=== PATIENT | male | born 1935 | race Two or more races ===

== ENCOUNTER 2017-11-03 06:57 | Emergency (ER) | payer MEDICARE, OTHER ==
[2017-11-03 07:11] VITALS: BMI 15.5
--- NOTE | 2017-11-03 07:46 | PDOC ---
History of Present Illness - General Chief Complaint: Injury Stated Complaint: HEMATURIA Time Seen by Provider: 11/03/17 07:44 - History of Present Illness Initial Comments: 11/03/17 09:16 Mr. Delatorre is an 82 yo male w/ pmh of GERD and undifferentiated schizophrenia who presents by ambulance after being found down at care home ([facility]). Per report from nursing staff he is at times confused and normally walks around with a walker. He is currently complaining of pain in his hips and has a small abbrasion on his right elbow he says also hurts. The patient denies chest pain, shortness of breath, headache and dizziness. Denies fever, chills, nausea, vomit, diarrhea and constipation. Denies dysuria, frequency, urgency and hematuria. Allergies: NKDA Past History - Past Medical History Allergies/Adverse Reactions: Allergies Allergy/AdvReac Type Severity Reaction Status Date / Time No Known Allergies Allergy Verified 11/03/17 07:11 Home Medications: Ambulatory Orders Acetaminophen [Tylenol] 650 mg PO PRN 11/03/17 Docusate Sodium 100 mg PO PRN 11/03/17 Multivitamins [Tab-A-Vit -] 1 tab PO DAILY 11/03/17 Quetiapine Fumarate [Seroquel -] 25 mg PO BID 11/03/17 Ranitidine HCl [Zantac] 150 mg PO BID 11/03/17 Vit A/Vitamin D3/E/Aloe V/Zinc [Periguard Ointment] 1 applic TP DAILY 11/03/17 - Suicide/Smoking/Psychosocial Hx Smoking History: Unknown if ever smoked Have you smoked in the past 12 months: No Information on smoking cessation initiated: No Hx Alcohol Use: No Drug/Substance Use Hx: No Review of Systems - Review of Systems Comments:: 11/03/17 07:45 GENERAL/CONSTITUTIONAL: No fever or chills. No weakness. HEAD, EYES, EARS, NOSE AND THROAT: No change in vision. No ear pain or discharge. No sore throat. CARDIOVASCULAR: No chest pain or shortness of breath RESPIRATORY: No cough, wheezing, or hemoptysis. GASTROINTESTINAL: No nausea, vomiting, diarrhea or constipation. GENITOURINARY: No dysuria, frequency, or change in urination. MUSCULOSKELETAL: +Patient reports pain to each hip. SKIN: No rash NEUROLOGIC: No headache, vertigo, loss of consciousness, or change in strength/ sensation. ENDOCRINE: No increased thirst. No abnormal weight change HEMATOLOGIC/LYMPHATIC: No anemia, easy bleeding, or history of blood clots. ALLERGIC/IMMUNOLOGIC: No hives or skin allergy. *Physical Exam - Vital Signs Last Vital Signs Temp Pulse Resp BP Pulse Ox 97.1 F L 85 18 91/70 100 11/03/17 07:09 11/03/17 07:09 11/03/17 07:09 11/03/17 07:09 11/03/17 07:09 - Physical Exam Comments: 11/03/17 07:46 GENERAL: Awake, alert, and oriented to person, in no acute distress HEAD: No signs of trauma, normocephalic, atraumatic EYES: PERRLA, EOMI, sclera anicteric, conjunctiva clear ENT: Auricles normal inspection, hearing grossly normal, nares patent, oropharynx clear without exudates. Moist mucosa NECK: Normal ROM, supple, no lymphadenopathy, JVD, or masses LUNGS: No distress, speaks full sentences, clear to auscultation bilaterally HEART: Regular rate and rhythm, normal S1 and S2, no murmurs, rubs or gallops, peripheral pulses normal and equal bilaterally. ABDOMEN: Soft, nontender, normoactive bowel sounds. No guarding, no rebound. No masses EXTREMITIES: +Small quarter sized abbrasion to lateral right elbow. Normal range of motion, no edema. No clubbing or cyanosis. NEUROLOGICAL: Cranial nerves II through XII grossly intact. Normal speech, normal gait, no focal sensorimotor deficits SKIN: Warm, Dry, normal turgor, no rashes or lesions noted. Medical Decision Making - Medical Decision Making 11/03/17 10:31 Mr. Delatorre is an 82 yo male found down w/ pmh as described. Head/Neck CT sent for evaluation as well as bilateral hip XR as patient complaining of pain on either side. Hip XR negative for acute pathology. Patient noted to have UTI as below. Keflex started for care. 11/03/17 11:12 Head/Neck CT negative for acute pathology. Will contact care home and discuss findings and discharge to their care w/ Keflex Rx for UTI treatment. 11/03/17 11:42 Called care home and discussed care with nurse plant protection supervisor. They will continue Keflex 500 bid for 1 week. Informed that we started this AM. Nursing expressed understanding and agreement and will comply. *DC/Admit/Observation/Transfer Diagnosis at time of Disposition: UTI (urinary tract infection) Qualifiers: Urinary tract infection type: site unspecified Hematuria presence: with hematuria Qualified Code(s): N39.0 - Urinary tract infection, site not specified - Discharge Dispostion Disposition: HOME - Referrals Referrals: Stacy Fuentes MD [Primary Care Provider] - - Patient Instructions Printed Discharge Instructions: DI for Urinary Tract Infection (UTI) Additional Instructions: Please continue keflex 500mg BID for 1 week. We have given first dose of the day in the ED already. Return if any fever, chills, pain, or other concerning symptoms. - Post Discharge Activity
--- NOTE | 2017-11-03 07:50 | PDOC ---
Attending Attestation - HPI HPI: 11/03/17 08:47 The patient is a 82 year old male, with a significant past medical history of schizophrenia, frequent falls,, and GERD, who presents to the emergency department from Shelter, s/p multiple unwitnessed falls. As per patient he does not know why he is here. However per EMS, patient fell multiple times at the [place]. Per nurse at [facility], patient was found on the floor, but he was able to get up on his own. Nurse reports patient has a suprapubic catheter in place, and blood was noted. Unknown how long patient was down for, whether he hit head , or had a syncopal event. Per records patient has generalized weakness at baseline, and typically ambulates with a walker. Patient is not on any blood thinners. Patient's baseline mental status is unknown. Patients history is limited due to clinical condition. Allergies: NKDA - Medical Decision Making 11/03/17 08:47 Documentation prepared by Antonio Thomas, acting as medical technologist generalist for Kathleen Motta MD. <Antonio Thomas - Last Filed: 11/03/17 09:02> - Resident Resident Name: Leonides Cleveland - ED Attending Attestation I have performed the following: I have examined & evaluated the patient, The case was reviewed & discussed with the resident, I agree w/resident's findings & plan, Exceptions are as noted - Physicial Exam PE: GENERAL: Awake, alert, and oriented to person, in no acute distress. Appears cachectic, chronically ill. HEAD: No signs of trauma EYES: PERRLA, EOMI, sclera anicteric, conjunctiva clear ENT: Auricles normal inspection, hearing grossly normal, nares patent, oropharynx clear without exudates. Dry mucosa NECK: Normal ROM, supple, no lymphadenopathy, JVD, or masses LUNGS: Breath sounds equal, clear to auscultation bilaterally. No wheezes, and no crackles HEART: Regular rate and rhythm, normal S1 and S2, no murmurs, rubs or gallops ABDOMEN: Soft, nontender, normoactive bowel sounds. No guarding, no rebound. No masses. +Suprapubic catheter, yellow urine in bag. EXTREMITIES: No bony tenderness to extremities. Normal range of motion, no edema. No clubbing or cyanosis. No cords, erythema, or tenderness NEUROLOGICAL: Cranial nerves II through XII grossly intact. Normal speech. Motor and sensation intact. SKIN: Warm, Dry, normal turgor, no rashes or lesions noted. - Medical Decision Making Pt presents s/p reported fall, unable to give reliable history. Will confirm baseline mental status with NH, will also obtain imaging of the hips B/L as that is where he initially reported pain. <Kathleen Motta - Last Filed: 11/03/17 09:43>
[2017-11-03 08:35] LABS: URINE APPEARANCE CLOUDY; URINE BILIRUBIN NEGATIVE (NEGATIVE); URINE BLOOD 3+ (NEGATIVE); URINE COLOR YELLOW; URINE GLUCOSE (UA) NEGATIVE (NEGATIVE); URINE KETONE NEGATIVE (NEGATIVE); URINE NITRITE POSITIVE (NEGATIVE); URINE UROBILINOGEN NEGATIVE mg/dL (0.2-1.0)
[2017-11-03 08:46] LABS: URINE LEUK ESTERASE 3+ (NEGATIVE); URINE PROTEIN 2+ (NEGATIVE)
[2017-11-03 08:55] LABS: URINE BACTERIA MANY /hpf (NONE SEEN)
[2017-11-03] MEDS ORDERED: CEPHALEXIN MONOHYDRATE 500 MG CAPSULE (UD) PO ONE (11:02)
[2017-11-03] MEDS ORDERED: CEPHALEXIN MONOHYDRATE 250 MG CAPSULE (FP) ONE (11:32)
[2017-11-03 14:02] VITALS: BP 118/72; PULSE 72; TEMP 97.2
--- NOTE | 2017-11-06 08:07 | PDOC ---
Patient Follow-up (Call Back) - Post ED Follow - Up Disposition at time of original discharge: [facility] Reason for Call Back: Abnwl. Microbiology (Pseudomonas on ucx, only sensitive to IV abx Pt on keflex which is not listed on sensitivity report Pt resides at [facility], called and informed nurse Patience and gave her full ucx report and sensitivity. States she will inform MD at facility)
== END 2017-11-03 14:00 ==
LOC: JER 06:57
DX: N39.0 Urinary tract infection, site not specified (principal); R31.9 Hematuria, unspecified; Z93.59 Other cystostomy status; W19.XXXA Unspecified fall, initial encounter; Y93.89 Activity, other specified; Y92.122 Bedroom in nursing home as the place of occurrence of the external cause; R26.89 Other abnormalities of gait and mobility; Z99.89 Dependence on other enabling machines and devices
CPT/HCPCS: 70450-TC; 72125-TC; 73523-TC-FY; 81003; 81015; 87086; 87186; 99283-25

== ENCOUNTER 2017-11-20 13:46 | Inpatient (IN) | payer MEDICARE, OTHER ==
[2017-11-20 14:12] VITALS: BMI 16.8
--- NOTE | 2017-11-20 14:20 | PDOC ---
History of Present Illness - General History Source: Patient - History of Present Illness Initial Comments: 11/20/17 15:59 HPI obtained from [place] records and conversation w/Marii Encinas (nurse @ [facility], ) as well as conversation with patient's PMD, Dr. Stacy Fuentes 82 y.o. male with a PMH of GERD, MDD and undifferentiated schizophrenia presents from [facility] ([facility]). Patient was noted to be "lethargic" on (). As patient's SpO2 in 80's today, CXR obtained showed possible lung mass. Patient sent to our ED at request of PMD. Patient is full code as per documentation @ [facility]. <Radha Eagle - Last Filed: 11/20/17 17:55> <Bartolome Marks - Last Filed: 11/20/17 20:00> - General Chief Complaint: Shortness of Breath Stated Complaint: SOB Time Seen by Provider: 11/20/17 14:19 Past History - Past Medical History COPD: No GI Disorders: Yes (gerd) Disorders: Yes (cystitis, berumen cath) Psychiatric Problems: Yes (schizophrenia,agitation) - Immunization History Immunization Up to Date: Yes - Suicide/Smoking/Psychosocial Hx Smoking History: Unknown if ever smoked Have you smoked in the past 12 months: No Information on smoking cessation initiated: No Hx Alcohol Use: No Drug/Substance Use Hx: No Substance Use Type: None <Radha Eagle - Last Filed: 11/20/17 17:55> <Bartolome Marks - Last Filed: 11/20/17 20:00> - Past Medical History Allergies/Adverse Reactions: Allergies Allergy/AdvReac Type Severity Reaction Status Date / Time No Known Allergies Allergy Verified 11/20/17 14:06 Home Medications: Ambulatory Orders Acetaminophen [Tylenol] 650 mg PO PRN 11/03/17 Docusate Sodium 100 mg PO PRN 11/03/17 Multivitamins [Tab-A-Vit -] 1 tab PO DAILY 11/03/17 Quetiapine Fumarate [Seroquel -] 75 mg PO BID 11/03/17 Ranitidine HCl [Zantac] 150 mg PO BID 11/03/17 Bacitracin - [Bacitracin Topical Ointment -] 1 applic TP BID 11/20/17 Mirtazapine [Remeron -] 7.5 mg PO HS 11/20/17 Review of Systems - Review of Systems Able to Perform ROS?: No <Radha Eagle - Last Filed: 11/20/17 17:55> *Physical Exam - Vital Signs Last Vital Signs Temp Pulse Resp BP Pulse Ox 112 H 20 93/73 11/20/17 14:07 11/20/17 14:07 11/20/17 14:07 - Physical Exam Comments: 11/20/17 17:48 GENERAL: initially only responsive to sternal rub --> increasingly alert during evaluation, cachetic HEAD: No signs of trauma EYES: PERRLA, EOMI, sclera anicteric, conjunctiva clear NECK: Normal ROM, supple, no lymphadenopathy, JVD, or masses LUNGS: Breath sounds equal, clear to auscultation bilaterally. No wheezes, and no crackles HEART: Regular rate and rhythm, normal S1 and S2, no murmurs, rubs or gallops ABDOMEN: Soft, nontender, normoactive bowel sounds. No guarding, no rebound. No masses EXTREMITIES: Normal range of motion, no edema. No clubbing or cyanosis. Cool, normal cappilarry refill NEUROLOGICAL: slurred speech, cranial nerves grossly intact SKIN: Cool, Stage 2 decubitus ulcer. <Radha Eagle - Last Filed: 11/20/17 17:55> - Vital Signs Last Vital Signs Temp Pulse Resp BP Pulse Ox 99.1 F 88 16 98/87 97 11/20/17 15:07 11/20/17 16:49 11/20/17 16:49 11/20/17 16:49 11/20/17 16:49 <Bartolome Marks - Last Filed: 11/20/17 20:00> ED Treatment Course - LABORATORY CBC & Chemistry Diagram: 11/20/17 15:07 11/20/17 15:07 <Radha Eagle - Last Filed: 11/20/17 17:55> - LABORATORY CBC & Chemistry Diagram: 11/20/17 15:07 11/20/17 15:07 - ADDITIONAL ORDERS Additional order review: Laboratory Results 11/20/17 11/20/17 11/20/17 15:07 15:07 15:07 PT with INR INR PTT (Actin FS) Anticoagulation Therapy No Result Required. Puncture Site Left brachial ABG pH 7.52 H ABG pCO2 at Pt Temp 27.6 L ABG pO2 at Pt Temp 191.0 H* ABG HCO3 22.5 ABG O2 Sat (Measured) 99.6 H* ABG O2 Content 14.3 L ABG Base Excess 0.7 Michael Test Positive Carboxyhemoglobin 1.6 Methemoglobin 1.0 O2 Delivery Device No Result Required. Oxygen Flow Rate Yes Vent Mode No Result Required. Vent Rate No Result Required. Mechanical Rate No Result Required. Pressure Support Vent No Result Required. Sodium Potassium Chloride Carbon Dioxide Anion Gap BUN Creatinine Creat Clearance w eGFR Random Glucose Lactic Acid 2.7 H* Calcium Total Bilirubin AST ALT Alkaline Phosphatase Creatine Kinase Troponin I Total Protein Albumin Urine Color Urine Appearance Urine pH Ur Specific [place] Urine Protein Urine Glucose (UA) Urine Ketones Urine Blood Urine Nitrite Urine Bilirubin Urine Urobilinogen Ur Leukocyte Esterase Urine WBC (Auto) Urine RBC (Auto) Urine Bacteria Hyaline Casts Urine Mucus Blood Type O POSITIVE Antibody Screen Negative 11/20/17 11/20/17 11/20/17 15:07 15:07 15:00 PT with INR 15.10 H INR 1.34 H PTT (Actin FS) 24.0 L Anticoagulation Therapy Puncture Site ABG pH ABG pCO2 at Pt Temp ABG pO2 at Pt Temp ABG HCO3 ABG O2 Sat (Measured) ABG O2 Content ABG Base Excess Michael Test Carboxyhemoglobin Methemoglobin O2 Delivery Device Oxygen Flow Rate Vent Mode Vent Rate Mechanical Rate Pressure Support Vent Sodium 139 Potassium 4.7 Chloride 107 Carbon Dioxide 21 Anion Gap 11 BUN 73 H Creatinine 1.7 H Creat Clearance w eGFR 38.78 Random Glucose 214 H Lactic Acid Calcium 8.3 L Total Bilirubin 0.4 AST 38 H ALT 31 Alkaline Phosphatase 152 H Creatine Kinase 51 Troponin I 0.02 Total Protein 6.6 Albumin 2.3 L Urine Color Dkyellow Urine Appearance Turbid Urine pH 5.0 Ur Specific [place] 1.013 Urine Protein 1+ H Urine Glucose (UA) Negative Urine Ketones Negative Urine Blood 1+ H Urine Nitrite Negative Urine Bilirubin Negative Urine Urobilinogen Negative Ur Leukocyte Esterase 3+ H Urine WBC (Auto) 404 Urine RBC (Auto) 22 Urine Bacteria Many Hyaline Casts 6 Urine Mucus Rare Blood Type Antibody Screen 11/20/17 15:07 RBC 3.38 L MCV 87.8 MCHC 33.8 RDW 16.1 H MPV 7.1 L Neutrophils % 87.2 H Lymphocytes % 4.8 L Monocytes % 7.8 Eosinophils % 0.0 Basophils % 0.2 - Medications Given in the ED: ED Medications Discontinued Medications Generic Name Dose Route Start Last Admin Trade Name Archana PRN Reason Stop Dose Admin Sodium Chloride 1,000 ml 11/20/17 15:55 11/20/17 16:09 Normal Saline - IV 11/20/17 15:56 1,000 ml ONCE ONE Administration Sodium Chloride 1,000 ml 11/20/17 15:58 11/20/17 15:20 Normal Saline - IV 11/20/17 15:59 1,000 ml ONCE ONE Administration <Bartolome Marks - Last Filed: 11/20/17 20:00> Medical Decision Making - Medical Decision Making 11/20/17 15:59 82 y.o. male presents from [place] with hypoxia and "lethargy." Patient hypotensive (SBP 90's), tachycardic (100's) @ presentation as well as alert to sternal rub, ED Adult Sepsis protocol initiated. Unable to obtain SpO2 - likely 2/2 to poor perfusion 2/2 to cool extremities, will place patient on BiPap pending ABG. 11/20/17 16:19 BUN 73, Cr. 1.7 -- large ratio suggestive of uremia leading to AMS, however patient more alert, semi-intelligible conversaitonal Sudanese Lactic Acid --> additional 1 L IV NS; will repeat Lactic Acid following fluid administration. ABG shows no pO2 99% - will d/c BiPap PMD paged for admission 11/20/17 16:[address] chest to r/o lung mass. Patient admitted to inpatient medicine service. Will continue to monitor while in ED. <Radha Eagle - Last Filed: 11/20/17 17:55> *DC/Admit/Observation/Transfer - Discharge Dispostion Admit: Yes <Radha Eagle - Last Filed: 11/20/17 17:55> <Bartolome Marks - Last Filed: 11/20/17 20:00> Diagnosis at time of Disposition: Uremia, Lung mass, Elevated lactic acid level, Dehydration Anemia Qualifiers: Anemia type: other cause Other causes of anemia: other cause, not classified Qualified Code(s): D64.89 - Other specified anemias - Discharge Dispostion Condition at time of disposition: Guarded
[2017-11-20 15:16] LABS: ARTERIAL BLD GAS O2 SATURATION 99.6 % (90-98.9); ARTERIAL BLOOD GAS BASE EXCESS 0.7 meq/l (-2-2); ARTERIAL BLOOD GAS PCO2 27.6 mmHg (35-45); ARTERIAL BLOOD GAS pH 7.52 (7.35-7.45)
[2017-11-20 15:18] LABS: ALLENS TEST POSITIVE; CARBOXYHEMOGLOBIN 1.6 gm% (0.5-2.0)
--- NOTE | 2017-11-20 15:18 | PDOC ---
Attending Attestation - Resident Resident Name: Radha Eagle - ED Attending Attestation I have performed the following: I have examined & evaluated the patient, The case was reviewed & discussed with the resident, I agree w/resident's findings & plan, Exceptions are as noted - HPI HPI: 11/20/17 15:16 82y M hx of gerd, urinary retention, schizophrenia, sent from [facility] for evaluation of sob. pt is uanble to give a history. hehas cool extremities, bp is low normal, unable to obtain good sat i suspect due to perfusion. on exam pt is cacectic appearing dry mucus membranes pulm: clear lungs wo rales/wheezing cardiac: rrr, no mrg abd: soft nontender ext: no edema, cachectic extremities skin: stage 2 decubitus ulcer without signs of infection rectal: brown stool : berumen in place 11/20/17 16:52 on reexacm pt is more awake denies any cp, sob, fever/chills, cough, back pain, abd pain, diarrhea, reactal bleeding pts labs reviewed noted for anemia to 10.0 BUN elevated to 70s cr at 1.[address] frausto - statk[facility] pt was noted alittle hypoxic, had a cxr yesterday that showed a possible lung mas so was sent to the ED for evaluation will obtain CT chest agree with admission to med surg - Physicial Exam PE: 11/20/17 19:54 see above - Medical Decision Making 11/20/17 19:55 see above Heart Score/ECG Review - ECG Impressions Comment:: 11/20/17 15:20 Twelve-lead EKG was performed and reviewed by me. There is normal sinus rhythm with a rate of 103 rate of [address] changes suggestive of acute ischemia
[2017-11-20 15:27] LABS: BASO % 0.2 % (0-2.0); HEMATOCRIT 29.6 % (35.4-49); LYMPH % 4.8 % (8-40); MCH 29.6 pg (25.7-33.7); MCHC 33.8 g/dl (32.0-35.9); MEAN CELL VOLUME 87.8 fl (80-96); MEAN PLT VOLUME 7.1 fl (7.5-11.1); MONO % 7.8 % (3.8-10.2); NEUT % 87.2 % (42.8-82.8); PLATELET COUNT 372 K/MM3 (134-434); RBC 3.38 M/mm3 (4.00-5.60); RDW 16.1 % (11.9-15.9); WHITE BLOOD COUNT 10.2 K/mm3 (4.0-10.0)
[2017-11-20 15:34] LABS: ALBUMIN 2.3 g/dl (3.4-5.0); ANION GAP 11 (8-16); BILIRUBIN,TOTAL 0.4 mg/dL (0.2-1.0); BLOOD UREA NITROGEN 73 mg/dL (7-18); CALCIUM 8.3 mg/dL (8.5-10.1); CHLORIDE 107 mmol/L (98-107); CO2 21 mmol/L (21-32); CREATININE 1.7 mg/dL (0.7-1.3); GLUCOSE,RANDOM 214 mg/dL (74-106); POTASSIUM 4.7 mmol/L (3.5-5.1); SGOT/AST 38 U/L (15-37); SGPT/ALT 31 U/L (12-78); SODIUM 139 mmol/L (136-145); TOT PROT 6.6 g/dl (6.4-8.2)
[2017-11-20 15:37] LABS: ALK PHOS 152 U/L (45-117)
[2017-11-20 15:40] LABS: INR 1.34 (0.82-1.09); PROTHROMBIN TIME (PATIENT) 15.1 SEC (9.98-11.88)
[2017-11-20] MEDS ORDERED: SODIUM CHLORIDE 0.9% 500 ML INFUS.BAG IV ONE ×2 (15:55→15:58)
[2017-11-20 16:54] LABS: URINE APPEARANCE TURBID; URINE BILIRUBIN NEGATIVE (NEGATIVE); URINE BLOOD 1+ (NEGATIVE); URINE COLOR DKYELLOW; URINE GLUCOSE (UA) NEGATIVE (NEGATIVE); URINE KETONE NEGATIVE (NEGATIVE); URINE NITRITE NEGATIVE (NEGATIVE); URINE UROBILINOGEN NEGATIVE mg/dL (0.2-1.0)
--- NOTE | 2017-11-20 17:06 | HP ---
Admitting History and Physical - Primary Care Physician PCP: Stacy Fuentes - Admission Chief Complaint: shortness of breath and lethargic History of Present Illness: patient sent to the emergency room by me from [facility]. Patient was seen earlier Over there. Patient's saturation was 81% on 3 L. Recent chest x-ray showed--left lower mass./ possible pneumonia I reviewed the chart. Patient recently admitted to [facility]--- From [facility]. Apparently he had chest x-ray done in August--- showed similar mass. No discharge summary came. Apparently in the chart--mentioned to CT chest--- but no CT chest one/ or report available. Also mentioned patient has guardian but no family. also mentioned--- conservative treatment as per pulmonary and hematology--- but no consults seen Patient is not DNR. I advised since patient is dyspneic-sent to emergency room for further evaluation and management. In the emergency room---the chest x-ray/ ct chest confirmed a mass . patient is very cachectic/week. Poor historian. History Source: Medical Record Limitations to Obtaining History: Clinical Condition - Past Medical History Cardiovascular: Yes: CAD Renal/: Yes: Other (history of suprapubic catheter----changed to Franklin--- indwelling--) Infectious Disease: Yes: Other (UTI) Psych: Yes: Schizophrenia - Smoking History Smoking history: Unknown if ever smoked Have you smoked in the past 12 months: No - Alcohol/Substance Use Hx Alcohol Use: No - Social History Usual Living Arrangement: Yes: Jail History of Recent Travel: No Home Medications - Allergies Allergies/Adverse Reactions: Allergies Allergy/AdvReac Type Severity Reaction Status Date / Time No Known Allergies Allergy Verified 11/20/17 14:06 - Home Medications Home Medications: Ambulatory Orders Acetaminophen [Tylenol] 650 mg PO PRN 11/03/17 Docusate Sodium 100 mg PO PRN 11/03/17 Multivitamins [Tab-A-Vit -] 1 tab PO DAILY 11/03/17 Quetiapine Fumarate [Seroquel -] 75 mg PO BID 11/03/17 Ranitidine HCl [Zantac] 150 mg PO BID 11/03/17 Bacitracin - [Bacitracin Topical Ointment -] 1 applic TP BID 11/20/17 Mirtazapine [Remeron -] 7.5 mg PO HS 11/20/17 Review of Systems Unable to obtain ROS, reason: see [place] Physical Examination Vital Signs: Vital Signs Temperature 99.1 F 11/20/17 15:07 Pulse Rate 88 11/20/17 16:49 Respiratory Rate 16 11/20/17 16:49 Blood Pressure 98/87 11/20/17 16:49 O2 Sat by Pulse Oximetry (%) 97 11/20/17 16:49 Constitutional: Yes: Cachectic, Other Eyes: Yes: Conjunctiva Clear Neck: Yes: Supple Cardiovascular: Yes: Regular Rate and Rhythm Respiratory: Yes: Diminished Gastrointestinal: Yes: Soft Renal/: Yes: Franklin Present Edema: No Labs: CBC, BMP 11/20/17 15:07 11/20/17 15:07 Imaging - Results Chest X-ray: Report Reviewed Cat Scan: Report Reviewed Problem List - Problems (1) Anemia Code(s): D64.9 - ANEMIA, UNSPECIFIED Qualifiers: Anemia type: other cause Other causes of anemia: other cause, not classified Qualified Code(s): D64.89 - Other specified anemias (2) Dehydration Code(s): E86.0 - DEHYDRATION (3) Elevated lactic acid level Code(s): R79.89 - OTHER SPECIFIED ABNORMAL FINDINGS OF BLOOD CHEMISTRY (4) Lung mass Code(s): R91.8 - OTHER NONSPECIFIC ABNORMAL FINDING OF LUNG FIELD Assessment/Plan admit to MedSurg. Fluids. Patient's healthcare proxy/ to be contacted/regarding patient's wishes Oxygen Pulmonary consult. Overall condition --very guarded. Will follow. Discussed with nursing staff also--as well as with the emergency room physician.
[2017-11-20] MEDS ORDERED: ACETAMINOPHEN 325 MG TABLET (FP) PO PRN ×2 (17:15→18:11)
[2017-11-20] MEDS ORDERED: DOCUSATE SODIUM 100 MG CAPSULE (FP) PO PRN (18:08)
[2017-11-20 18:14] LABS: URINE LEUK ESTERASE 3+ (NEGATIVE); URINE PROTEIN 1+ (NEGATIVE)
[2017-11-20 18:39] LABS: URINE BACTERIA MANY /hpf (NONE SEEN); URINE HYALINE CAST 6 /lpf; URINE MUCUS RARE
[2017-11-20] MEDS: D5-1/2NS+20 MEQ KCL - 20 MEQ/1,000 ML INFUS.BAG IV SCH (20:26)
[2017-11-20] MEDS ORDERED: INSULIN (NOVOLOG) ASPART 100 UNITS/ML 10ML VIAL ONE (21:10)
[2017-11-20] MEDS: HEPARIN NA (PORCINE) 5,000 UNITS/ML 1ML VIAL SQ SCH (22:34)
[2017-11-20] MEDS: BACITRACIN 15 GM TUBE TOPICAL OINTMENT TP SCH (22:35)
[2017-11-20] MEDS: QUEtiapine FUMARATE 25 MG TABLET (FP) PO SCH (22:36)
[2017-11-20] MEDS: RANITIDINE HCL 150 MG TABLET (FP) PO SCH (22:36)
[2017-11-20] MEDS: MIRTAZAPINE 15 MG TABLET (FP) PO SCH (22:36)
[2017-11-21] MEDS: D5-1/2NS+20 MEQ KCL - 20 MEQ/1,000 ML INFUS.BAG IV SCH ×3 (05:53→20:08)
[2017-11-21 08:45] LABS: BASO % 0.1 % (0-2.0); EOS % 0.1 % (0-4.5); HEMATOCRIT 28.4 % (35.4-49); HEMOGLOBIN 9.5 GM/dL (11.7-16.9); LYMPH % 6.4 % (8-40); MCH 29.5 pg (25.7-33.7); MCHC 33.4 g/dl (32.0-35.9); MEAN CELL VOLUME 88.5 fl (80-96); MEAN PLT VOLUME 7.1 fl (7.5-11.1); MONO % 7.5 % (3.8-10.2); NEUT % 85.9 % (42.8-82.8); PLATELET COUNT 300 K/MM3 (134-434); RBC 3.21 M/mm3 (4.00-5.60); RDW 16.5 % (11.9-15.9); WHITE BLOOD COUNT 9.5 K/mm3 (4.0-10.0)
[2017-11-21 09:08] LABS: ALBUMIN 2.1 g/dl (3.4-5.0); ANION GAP 8 (8-16); BLOOD UREA NITROGEN 49 mg/dL (7-18); CHLORIDE 113 mmol/L (98-107); CO2 24 mmol/L (21-32); CREATININE 1.1 mg/dL (0.7-1.3); GLUCOSE,RANDOM 121 mg/dL (74-106); POTASSIUM 4.7 mmol/L (3.5-5.1); SGOT/AST 28 U/L (15-37); SGPT/ALT 24 U/L (12-78); SODIUM 145 mmol/L (136-145)
[2017-11-21 09:10] LABS: ALK PHOS 139 U/L (45-117); BILIRUBIN,TOTAL 0.4 mg/dL (0.2-1.0); TOT PROT 5.9 g/dl (6.4-8.2)
[2017-11-21] MEDS: HEPARIN NA (PORCINE) 5,000 UNITS/ML 1ML VIAL SQ SCH ×2 (10:39→22:54)
[2017-11-21] MEDS: RANITIDINE HCL 150 MG TABLET (FP) PO SCH ×2 (10:40→22:56)
[2017-11-21] MEDS: MULTIVITAMINS (DAILY MVI) TABLET (FP) PO SCH (10:40)
[2017-11-21] MEDS: QUEtiapine FUMARATE 25 MG TABLET (FP) PO SCH ×2 (10:41→22:56)
[2017-11-21] MEDS: BACITRACIN 15 GM TUBE TOPICAL OINTMENT TP SCH ×2 (10:45→22:54)
[2017-11-21] MEDS ORDERED: PT OWN MED DRAWER 7, Y5N ONE ×2 (10:48→12:24)
--- NOTE | 2017-11-21 10:59 | PN ---
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, Physician Chief Complaint: PT AGITATED known to me from [place]-- has multiple falls history Has h/o lung mass- being followed by Pulmonary -- no interventions Cachetic - Current Medication List Current Medications: Active Medications Bacitracin (Bacitracin -) 1 applic TP BID [facility] Last Admin: 11/21/17 10:45 Dose: 1 applic Heparin Sodium (Porcine) (Heparin -) 5,000 unit SQ BID [facility] Last Admin: 11/21/17 10:39 Dose: 5,000 unit Potassium Chloride/Dextrose/Sod Cl (D5-1/2ns+20 Meq Kcl -) 20 meq in 1,000 mls @ 100 mls/hr IV ASDIR [facility] Last Admin: 11/21/17 05:53 Dose: 100 mls/hr Mirtazapine (Remeron -) 7.5 mg PO HS [facility] Last Admin: 11/20/17 22:36 Dose: Not Given Multivitamins/Minerals/Vitamin C (Tab-A-Vit -) 1 tab PO DAILY [facility] Last Admin: 11/21/17 10:40 Dose: 1 tab Quetiapine Fumarate (Seroquel -) 75 mg PO BID [facility] Last Admin: 11/21/17 10:41 Dose: 75 mg Ranitidine HCl (Zantac -) 150 mg PO BID [facility] Last Admin: 11/21/17 10:40 Dose: 150 mg - Objective Vital Signs: Vital Signs Temperature 97.9 F 11/21/17 06:00 Pulse Rate 67 11/21/17 09:00 Respiratory Rate 18 11/21/17 09:00 Blood Pressure 118/72 11/21/17 09:00 O2 Sat by Pulse Oximetry (%) 97 11/21/17 07:16 Constitutional: Yes: No Distress, Calm Cardiovascular: Yes: Regular Rate and Rhythm Respiratory: Yes: Diminished, Rales Gastrointestinal: Yes: Normal Bowel Sounds, Soft. No: Tenderness Genitourinary: Yes: Franklin Present Edema: No Labs: CBC, BMP 11/21/17 08:05 11/21/17 08:05 INR, PTT INR 1.34 (0.82-1.09) H 11/20/17 15:07 Problem List - Problems (1) Anemia Code(s): D64.9 - ANEMIA, UNSPECIFIED Qualifiers: Anemia type: other cause Other causes of anemia: other cause, not classified Qualified Code(s): D64.89 - Other specified anemias (2) Dehydration Code(s): E86.0 - DEHYDRATION (3) Elevated lactic acid level Code(s): R79.89 - OTHER SPECIFIED ABNORMAL FINDINGS OF BLOOD CHEMISTRY (4) Lung mass Code(s): R91.8 - OTHER NONSPECIFIC ABNORMAL FINDING OF LUNG FIELD (5) Uremia Code(s): N19 - UNSPECIFIED KIDNEY FAILURE Assessment/Plan PLAN decrease iv fluids xanax prn for agitation pt does not have family in chart supportive care will speak with NH staff
[2017-11-21] MEDS ORDERED: ALPRAZolam 0.25 MG TABLET PO PRN (12:11)
--- NOTE | 2017-11-21 12:20 | CON.PULM ---
Consult Consult Specialty:: PULMONARY Referred by:: Dr. Head Reason for Consultation:: lung mass - History of Present Illness Chief Complaint: lethargy History of Present Illness: 82yo male with h/o schizophrenia, depression, GERD who was transferred from the custodial for lethargy and hypoxia. Pt unable to provide further history at this time. CXR was done which showed a LLL mass confirmed by CT chest. No fevers recorded, bloodwork unremarkable. ABG showing acute respiratory alkalosis. Pt poor historian, cachectic. - History Source History Provided By: Medical Record Limitations to Obtaining History: Clinical Condition - Past Medical History Cardio/Vascular: Yes: CAD Renal/: Yes: Other (history of suprapubic catheter----changed to Franklin--- indwelling--) Infectious Disease: Yes: Other (UTI) Psych: Yes: Depression, Schizophrenia - Alcohol/Substance Use Hx Alcohol Use: No - Smoking History Smoking history: Unknown if ever smoked Have you smoked in the past 12 months: No - Social History History of Recent Travel: No Home Medications - Allergies Allergies/Adverse Reactions: Allergies Allergy/AdvReac Type Severity Reaction Status Date / Time No Known Allergies Allergy Verified 11/20/17 14:06 - Home Medications Home Medications: Ambulatory Orders Acetaminophen [Tylenol] 650 mg PO PRN 11/03/17 Docusate Sodium 100 mg PO PRN 11/03/17 Multivitamins [Tab-A-Vit -] 1 tab PO DAILY 11/03/17 Quetiapine Fumarate [Seroquel -] 75 mg PO BID 11/03/17 Ranitidine HCl [Zantac] 150 mg PO BID 11/03/17 Bacitracin - [Bacitracin Topical Ointment -] 1 applic TP BID 11/20/17 Mirtazapine [Remeron -] 7.5 mg PO HS 11/20/17 Review of Systems Unable to obtain ROS, reason: poor historian Physical Exam Vital Sings: Vital Signs Temperature 97.9 F 11/21/17 06:00 Pulse Rate 67 11/21/17 09:00 Respiratory Rate 18 11/21/17 09:00 Blood Pressure 118/72 11/21/17 09:00 O2 Sat by Pulse Oximetry (%) 98 11/21/17 09:00 Constitutional: Yes: No Distress, Cachectic Eyes: Yes: Conjunctiva Clear, EOM Intact HENT: Yes: Atraumatic, Normocephalic Neck: Yes: Supple, Trachea Midline Cardiovascular: Yes: Regular Rate and Rhythm Respiratory: Yes: Diminished (distant breath sounds) ...Clubbing: No Gastrointestinal: Yes: Normal Bowel Sounds, Soft. No: Tenderness Edema: No Labs: CBC, BMP 11/21/17 08:05 11/21/17 08:05 ABG Results ABG pH 7.52 (7.35-7.45) H 11/20/17 15:07 ABG pCO2 at Pt Temp 27.6 mmHg (35-45) L 11/20/17 15:07 ABG pO2 at Pt Temp 191.0 mmHg (68-100) H* 11/20/17 15:07 ABG HCO3 22.5 meq/L (22-26) 11/20/17 15:07 ABG O2 Sat (Measured) 99.6 % (90-98.9) H* 11/20/17 15:07 ABG O2 Content 14.3 % vol (15-22) L 11/20/17 15:07 ABG Base Excess 0.7 meq/l (-2-2) 11/20/17 15:07 Imaging - Results Cat Scan: Report Reviewed, Image Reviewed (large LLL mass) Assessment/Plan Lung Mass likely malignant Failure to Thrive Schizophrenia Depression - lung mass likely malignant but pt with poor functional status and appears very malnourished, likely would not be a candidate for treatment even if he was diagnosed with a malignancy - would defer invasive diagnostic procedures at this time - oncology evaluation for further input - DVT prophylaxis
--- NOTE | 2017-11-21 14:26 | EKG ---
Test Reason : Blood Pressure : / mmHG Vent. Rate : 103 BPM Atrial Rate : 103 BPM P-R Int : 142 ms QRS Dur : 088 ms QT Int : 324 ms P-R-T Axes : 085 084 082 degrees QTc Int : 424 ms Limited data due to poor baseline ecg SINUS TACHYCARDIA LOW VOLTAGE QRS BORDERLINE ECG NO PREVIOUS ECGS AVAILABLE Confirmed by MD Shakeel, Jovanny ([id number]) on 11/21/2017 2:26:04 PM Referred By: Confirmed By:Jovanny Beckford MD
[2017-11-21] MEDS ORDERED: FLU VACCINE QUAD 60 MCG/0.5 ML (MDV 17-18) IM ONE (16:00)
[2017-11-21] MEDS ORDERED: PNEUMOC 13-VAL CONJ-DIP CRM/PF 0.5 ML DISP.SYRIN IM ONE (16:00)
[2017-11-21] MEDS: MIRTAZAPINE 15 MG TABLET (FP) PO SCH (22:55)
[2017-11-22] MEDS ORDERED: PT OWN MED DRAWER 7, Y5N ONE (10:12)
[2017-11-22] MEDS: QUEtiapine FUMARATE 25 MG TABLET (FP) PO SCH (10:18)
[2017-11-22] MEDS: MULTIVITAMINS (DAILY MVI) TABLET (FP) PO SCH (10:20)
[2017-11-22] MEDS: RANITIDINE HCL 150 MG TABLET (FP) PO SCH ×2 (10:20→21:15)
[2017-11-22] MEDS: HEPARIN NA (PORCINE) 5,000 UNITS/ML 1ML VIAL SQ SCH ×2 (10:24→21:15)
[2017-11-22] MEDS: BACITRACIN 15 GM TUBE TOPICAL OINTMENT TP SCH ×2 (10:31→21:15)
--- NOTE | 2017-11-22 11:43 | PN ---
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, Physician Chief Complaint: lethargic - Current Medication List Current Medications: Active Medications Alprazolam (Xanax -) 0.5 mg PO Q8H PRN PRN Reason: ANXIETY Bacitracin (Bacitracin -) 1 applic TP BID [facility] Last Admin: 11/22/17 10:31 Dose: 1 applic Heparin Sodium (Porcine) (Heparin -) 5,000 unit SQ BID [facility] Last Admin: 11/22/17 10:24 Dose: 5,000 unit Potassium Chloride/Dextrose/Sod Cl (D5-1/2ns+20 Meq Kcl -) 20 meq in 1,000 mls @ 60 mls/hr IV ASDIR [facility] Last Admin: 11/21/17 20:08 Dose: 60 mls/hr Mirtazapine (Remeron -) 7.5 mg PO HS [facility] Last Admin: 11/21/17 22:55 Dose: 7.5 mg Multivitamins/Minerals/Vitamin C (Tab-A-Vit -) 1 tab PO DAILY [facility] Last Admin: 11/22/17 10:20 Dose: Not Given Quetiapine Fumarate (Seroquel -) 75 mg PO BID [facility] Last Admin: 11/22/17 10:18 Dose: 75 mg Ranitidine HCl (Zantac -) 150 mg PO BID [facility] Last Admin: 11/22/17 10:20 Dose: Not Given - Objective Vital Signs: Vital Signs Temperature 103.1 F H 11/22/17 11:21 Pulse Rate 133 H 11/22/17 09:00 Respiratory Rate 16 11/22/17 09:00 Blood Pressure 85/54 11/22/17 09:00 O2 Sat by Pulse Oximetry (%) 98 11/21/17 21:30 Constitutional: Yes: No Distress Cardiovascular: Yes: Regular Rate and Rhythm Respiratory: Yes: Diminished Gastrointestinal: Yes: Normal Bowel Sounds, Soft. No: Tenderness Edema: No Labs: CBC, BMP 11/21/17 08:05 11/21/17 08:05 INR, PTT INR 1.34 (0.82-1.09) H 11/20/17 15:07 Problem List - Problems (1) Anemia Code(s): D64.9 - ANEMIA, UNSPECIFIED Qualifiers: Anemia type: other cause Other causes of anemia: other cause, not classified Qualified Code(s): D64.89 - Other specified anemias (2) Dehydration Code(s): E86.0 - DEHYDRATION (3) Elevated lactic acid level Code(s): R79.89 - OTHER SPECIFIED ABNORMAL FINDINGS OF BLOOD CHEMISTRY (4) Lung mass Code(s): R91.8 - OTHER NONSPECIFIC ABNORMAL FINDING OF LUNG FIELD (5) Uremia Code(s): N19 - UNSPECIFIED KIDNEY FAILURE Assessment/Plan PLAN pt does not have family His guardian is [facility]-- spoke with nursing marble supervisor who will call me back supportive care Pulmonary input noted Will need palliative care Oncology eval-- spoke with Dr Epstein-- pt is not a good candidate for further procedures, chemo,RT
--- NOTE | 2017-11-22 12:17 | CONSULT ---
Consult Consult Specialty:: Oncology - History of Present Illness History of Present Illness: 82 y.o. male with a PMH of GERD, MDD and undifferentiated schizophrenia presents from [facility]). Patient was noted to be "lethargic" on (). As patient's SpO2 in 80's today, CXR obtained showed possible lung mass. Patient sent to our ED at request of PMD. As there is a CT chest with mass, Oncology consulted for the mass. Unable to obtain any history. Pt is poorly responsive to questions. Chart reviewed in detail, discussed with pt's PMD and RN. - History Source History Provided By: Medical Record - Past Medical History Cardio/Vascular: Yes: CAD Renal/: Yes: Other (history of suprapubic catheter----changed to Franklin--- indwelling--) Infectious Disease: Yes: Other (UTI) Psych: Yes: Depression, Schizophrenia - Alcohol/Substance Use Hx Alcohol Use: No - Smoking History Smoking history: Unknown if ever smoked Have you smoked in the past 12 months: No - Social History History of Recent Travel: No Home Medications - Allergies Allergies/Adverse Reactions: Allergies Allergy/AdvReac Type Severity Reaction Status Date / Time No Known Allergies Allergy Verified 11/20/17 14:06 - Home Medications Home Medications: Ambulatory Orders Acetaminophen [Tylenol] 650 mg PO PRN 11/03/17 Docusate Sodium 100 mg PO PRN 11/03/17 Multivitamins [Tab-A-Vit -] 1 tab PO DAILY 11/03/17 Quetiapine Fumarate [Seroquel -] 75 mg PO BID 11/03/17 Ranitidine HCl [Zantac] 150 mg PO BID 11/03/17 Bacitracin - [Bacitracin Topical Ointment -] 1 applic TP BID 11/20/17 Mirtazapine [Remeron -] 7.5 mg PO HS 11/20/17 Review of Systems Findings/Remarks: unable to obtain. due to pts physical condition. Physical Exam Vital Signs: Vital Signs Temperature 103.1 F H 11/22/17 11:21 Pulse Rate 133 H 11/22/17 09:00 Respiratory Rate 16 11/22/17 09:00 Blood Pressure 85/54 11/22/17 09:00 O2 Sat by Pulse Oximetry (%) 98 11/21/17 21:30 Constitutional: Yes: Cachectic, Mild Distress Eyes: Yes: Conjunctiva Clear HENT: Yes: Atraumatic, Normocephalic Neck: Yes: Supple Respiratory: Yes: Regular Gastrointestinal: Yes: Soft Labs: CBC, BMP 11/21/17 08:05 11/21/17 08:05 Assessment/Plan Suspicious for Advanced malignancy( radiological evidence) pt unable to talk. Present ECOG PS is 4. Precludes management. Concur with Pulmonary if NOK, would contact, if not the alternate procedures for palliation to be followed randy RN and
--- NOTE | 2017-11-22 12:21 | PN ---
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 (short form) - Note 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: SRINIVAS HAS CALLED THE GUARDIAN MULTIPLE TIMES AND TODAY THE OFFICE IS CLOSED-- DUE TO PT'S CONDITION AND POOR PROGNOSIS , HE IS NOT A CANDIDATE FOR FURTHER PROCEDURES OR TESTING, CHEMO, RADIATION . HE IS SEPTIC, BREATHING IS SHALLOW PERFORMING RESUSCITATIVE MEASURES MAY CAUSE A BURDEN RATHER THAN BE OF BENEFIT FOR THE PT-- spoke with guardian - Faiza Lazo-- pt is DNR/DNI Problem List - Problems (1) Anemia Code(s): D64.9 - ANEMIA, UNSPECIFIED Qualifiers: Anemia type: other cause Other causes of anemia: other cause, not classified Qualified Code(s): D64.89 - Other specified anemias (2) Dehydration Code(s): E86.0 - DEHYDRATION (3) Elevated lactic acid level Code(s): R79.89 - OTHER SPECIFIED ABNORMAL FINDINGS OF BLOOD CHEMISTRY (4) Lung mass Code(s): R91.8 - OTHER NONSPECIFIC ABNORMAL FINDING OF LUNG FIELD (5) Uremia Code(s): N19 - UNSPECIFIED KIDNEY FAILURE
[2017-11-22] MEDS: CEFTRIAXONE 1 G/50 ML PREMIX 50 ML IVPB SCH (13:11)
[2017-11-22] MEDS: D5-1/2NS+20 MEQ KCL - 20 MEQ/1,000 ML INFUS.BAG IV SCH ×2 (13:11→14:37)
[2017-11-22] MEDS: ACETAMINOPHEN 650 MG SUPP.RECT PR PRN (13:14)
--- NOTE | 2017-11-22 15:14 | PN ---
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 (short form) - Note 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: PULMONARY OPENS EYES/NON VERBAL ASKED IF HE WAS IN PAIN/HE INDICATED NO FEBRILE/WASTED DIMINISHED BREATH SOUNDS S1S2 TACHY BS+ NO EDEMA LABS/NOTES/MEDS REVIEWED Lung Mass likely malignant Failure to Thrive Schizophrenia Depression - lung mass likely malignant but pt with poor functional status and appears very malnourished, likely would not be a candidate for treatment even if he was diagnosed with a malignancy - would defer invasive diagnostic procedures at this time - oncology evaluation for further input - DVT prophylaxis Khoi MARTINEZ MD
[2017-11-22] MEDS: SODIUM CHLORIDE 1,000 ML IV SCH (17:23)
[2017-11-23] MEDS: SODIUM CHLORIDE 1,000 ML IV SCH ×3 (06:43→16:00)
[2017-11-23] MEDS: MULTIVITAMINS (DAILY MVI) TABLET (FP) PO SCH (11:11)
[2017-11-23] MEDS: HEPARIN NA (PORCINE) 5,000 UNITS/ML 1ML VIAL SQ SCH ×2 (11:11→22:34)
[2017-11-23] MEDS: RANITIDINE HCL 150 MG TABLET (FP) PO SCH ×2 (11:12→22:34)
[2017-11-23] MEDS: CEFTRIAXONE 1 G/50 ML PREMIX 50 ML IVPB SCH ×2 (11:23→12:43)
[2017-11-23] MEDS: ACETAMINOPHEN 650 MG SUPP.RECT PR PRN ×2 (11:25→15:50)
--- NOTE | 2017-11-23 11:31 | PN ---
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, Physician Chief Complaint: awake coughing on thin liquids appetite poor - Current Medication List Current Medications: Active Medications Acetaminophen (Tylenol Suppository -) 650 mg NV Q4H PRN PRN Reason: FEVER Last Admin: 11/22/17 13:14 Dose: 650 mg Alprazolam (Xanax -) 0.25 mg PO Q8H PRN PRN Reason: ANXIETY Bacitracin (Bacitracin -) 1 applic TP BID [facility] Last Admin: 11/22/17 21:15 Dose: 1 applic Heparin Sodium (Porcine) (Heparin -) 5,000 unit SQ BID [facility] Last Admin: 11/23/17 11:11 Dose: 5,000 unit CEFTRIAXONE 1 G/50 ML PREMIX (Ceftriaxone 1 Gm-D5w Bag) 50 mls @ 100 mls/hr IVPB DAILY [facility] Last Admin: 11/23/17 11:23 Dose: Not Given Sodium Chloride (Normal Saline -) 1,000 mls @ 75 mls/hr IV ASDIR [facility] Last Admin: 11/23/17 06:43 Dose: 75 mls/hr Multivitamins/Minerals/Vitamin C (Tab-A-Vit -) 1 tab PO DAILY [facility] Last Admin: 11/23/17 11:11 Dose: Not Given Ranitidine HCl (Zantac -) 150 mg PO BID [facility] Last Admin: 11/23/17 11:12 Dose: Not Given - Objective Vital Signs: Vital Signs Temperature 100.1 F H 11/23/17 11:07 Pulse Rate 117 H 11/23/17 11:07 Respiratory Rate 20 11/23/17 11:07 Blood Pressure 88/67 11/23/17 11:07 O2 Sat by Pulse Oximetry (%) 94 L 11/22/17 21:00 Constitutional: Yes: No Distress Cardiovascular: Yes: Regular Rate and Rhythm Respiratory: Yes: Diminished Gastrointestinal: Yes: Normal Bowel Sounds. No: Tenderness Edema: No Labs: CBC, BMP 11/21/17 08:05 11/21/17 08:05 INR, PTT INR 1.34 (0.82-1.09) H 11/20/17 15:07 Problem List - Problems (1) Anemia Code(s): D64.9 - ANEMIA, UNSPECIFIED Qualifiers: Anemia type: other cause Other causes of anemia: other cause, not classified Qualified Code(s): D64.89 - Other specified anemias (2) Dehydration Code(s): E86.0 - DEHYDRATION (3) Elevated lactic acid level Code(s): R79.89 - OTHER SPECIFIED ABNORMAL FINDINGS OF BLOOD CHEMISTRY (4) Lung mass Code(s): R91.8 - OTHER NONSPECIFIC ABNORMAL FINDING OF LUNG FIELD (5) Uremia Code(s): N19 - UNSPECIFIED KIDNEY FAILURE (6) UTI (urinary tract infection) Code(s): N39.0 - URINARY TRACT INFECTION, SITE NOT SPECIFIED Qualifiers: Urinary tract infection type: site unspecified Hematuria presence: with hematuria Qualified Code(s): N39.0 - Urinary tract infection, site not specified; R31.9 - Hematuria, unspecified; R31.9 - Hematuria, unspecified Assessment/Plan PLAN pt does not have family pt is DNR/DNI Swallow eval ID consult as he has fever despite antibiotics Will need palliative care
--- NOTE | 2017-11-23 12:06 | CONSULT ---
Admitting History and Physical - Primary Care Physician PCP: Monet Head - Admission History of Present Illness: 82 y.o. male with a PMH of GERD, MDD and undifferentiated schizophrenia admitted from [facility] with lethargy and hypoxia. Selected Entries 11/22/17 11/22/17 11/22/17 02:00 06:00 09:38 Breakfast 0 Lunch Temperature 99.4 F 99.2 F 11/22/17 11/22/17 11/22/17 11:21 14:00 14:55 Breakfast Lunch 0 Temperature 103.1 F H 102.4 F H 11/22/17 11/23/17 11/23/17 18:00 02:00 06:00 Breakfast Lunch Temperature 97.1 F L 100 F H 100.1 F H 11/23/17 11/23/17 11/23/17 11:07 11:20 12:00 Breakfast 25% Lunch Temperature 100.1 F H 102.4 F H Laboratory Tests 11/20/17 11/21/17 15:07 08:[address] chest with mass mid-distal long segment esophagus wall thickening RLL involvement Coughing on thin liquids- swallowing evaluation ordered. fever despite antibiotics - ID consulted Congested. History Source: Medical Record Limitations to Obtaining History: Clinical Condition (confused) - Past Medical History Cardiovascular: Yes: CAD Renal/: Yes: Other (history of suprapubic catheter----changed to [place]--- indwelling--) Infectious Disease: Yes: Other (UTI) Psych: Yes: Depression, Schizophrenia - Advance Directives Advance Directives: Yes: MOLST - Smoking History Smoking history: Unknown if ever smoked Have you smoked in the past 12 months: No - Alcohol/Substance Use Hx Alcohol Use: No - Social History History of Recent Travel: No History - Admission Reason For Visit: UREMIA - Diagnostics X-ray: Report Reviewed (11/20) - General Mental Status: Awake and Alert, Vague, Confused Attention: Distractible Head/Neck Control: Needs Assist - Hearing Hearing: Impaired Hearing Aide: No With Patient: No Speech Evaluation - Communication Primary Language: FAROESE Oral Expression Ability: Yes: Moderate Impairment - Speech Production Able to Make Needs Known: Yes: Moderately Impaired Intelligibility: Yes: Moderately Impaired - Speech Characteristics Voice Loudness: Moderately Soft/Quiet Voice Pitch: Yes: Mildly High Voice Phonatory-based Quality: Yes: Weak, Dysphonia Speech Pattern: Impaired Speech Clarity: < 50% Nasal Resonance: Normal - Swallow Evaluation/Bedside Assessment Current Nutritional Intake: Soft, Thin Liquids Dentition: Yes: Edentulous Against Resistance Opening: Weak Against Resistance Closing: Weak Pucker Lips: Weak Smile: Weak Lingual Movement: Symmetric, Reduced Tip Elevation, Reduced Lt Lateralization, Reduced Protrusion Lingual Speed of Movement: Reduced Lingual Movement Strgth Against Opposition: Reduced Laryngeal Elevation: Impaired Laryngeal Movement: Reduced Excursion, Labored,delay initiation, Reduced Velocity Rate of Intake: Slow/Holding Bolus Size: Small Chewing: Impaired Oral Prep Time: Increased A-P Transit: Impaired Timing of Swallow: Delayed Coughing/Throat Clear: Yes (thin) Recommendations - Speech Evaluation, Impression/Plan Impression: Very weak. Limited verbalizations. seems confused. Weak, delayed swallow with suspected aspiration.Congested.Fever spikes.Emaciated.DNR/DNI. Edentulous. - Dysphagia Impressions/Plan Swallowing Skills: Impaired Dysphagia Impressions: Moderate Impairment, Suspect Aspiration *Silent aspiration: cannot be R/O at bedside - Recommendations Diet Consistency: Dysphagia Pureed Medication Administration: Crushed with applesauce Liquids: [place] Thick Supplement: Magic Cup, Ensure Pudding
--- NOTE | 2017-11-23 13:01 | PN ---
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, Physician History of Present Illness: pulmonary awake,congested,-resp distress, febrile t 102.4 - Current Medication List Current Medications: Active Medications Acetaminophen (Tylenol Suppository -) 650 mg [place] Q4H PRN PRN Reason: FEVER Last Admin: 11/23/17 11:25 Dose: 650 mg Alprazolam (Xanax -) 0.25 mg PO Q8H PRN PRN Reason: ANXIETY Bacitracin (Bacitracin -) 1 applic TP BID [facility] Last Admin: 11/22/17 21:15 Dose: 1 applic Heparin Sodium (Porcine) (Heparin -) 5,000 unit SQ BID [facility] Last Admin: 11/23/17 11:11 Dose: 5,000 unit CEFTRIAXONE 1 G/50 ML PREMIX (Ceftriaxone 1 Gm-D5w Bag) 50 mls @ 100 mls/hr IVPB DAILY [facility] Last Admin: 11/23/17 12:43 Dose: 100 mls/hr Sodium Chloride (Normal Saline -) 1,000 mls @ 75 mls/hr IV ASDIR [facility] Last Admin: 11/23/17 12:36 Dose: 75 mls/hr Multivitamins/Minerals/Vitamin C (Tab-A-Vit -) 1 tab PO DAILY [facility] Last Admin: 11/23/17 11:11 Dose: Not Given Ranitidine HCl (Zantac -) 150 mg PO BID [facility] Last Admin: 11/23/17 11:12 Dose: Not Given - Objective Vital Signs: Vital Signs Temperature 102.4 F H 11/23/17 11:20 Pulse Rate 117 H 11/23/17 11:07 Respiratory Rate 20 11/23/17 11:07 Blood Pressure 88/67 11/23/17 11:07 O2 Sat by Pulse Oximetry (%) 94 L 11/22/17 21:00 Constitutional: Yes: Calm, Cachectic Eyes: Yes: WNL HENT: Yes: WNL Neck: Yes: WNL Cardiovascular: Yes: Regular Rate and Rhythm, S1, S2 Respiratory: Yes: Rhonchi (scattered christopher rhonchi) Gastrointestinal: Yes: Normal Bowel Sounds, Soft Extremities: Yes: WNL Edema: No Labs: CBC, BMP Problem List - Problems (1) Anemia Code(s): D64.9 - ANEMIA, UNSPECIFIED Qualifiers: Anemia type: other cause Other causes of anemia: other cause, not classified Qualified Code(s): D64.89 - Other specified anemias (2) Dehydration Code(s): E86.0 - DEHYDRATION (3) Elevated lactic acid level Code(s): R79.89 - OTHER SPECIFIED ABNORMAL FINDINGS OF BLOOD CHEMISTRY (4) Lung mass Code(s): R91.8 - OTHER NONSPECIFIC ABNORMAL FINDING OF LUNG FIELD (5) Schizophrenia Code(s): F20.9 - SCHIZOPHRENIA, UNSPECIFIED Assessment/Plan Assessment/Plan LLL Lung Mass likely malignant Failure to Thrive Schizophrenia Depression Fever - lung mass likely malignant but pt with poor functional status and appears very malnourished, likely would not be a candidate for treatment even if he was diagnosed with a malignancy - would defer invasive diagnostic procedures at this time - DVT prophylaxis - cultures - abx -inhaled bronchodilators DR DILLON
[2017-11-23] MEDS: BACITRACIN 15 GM TUBE TOPICAL OINTMENT TP SCH ×2 (14:46→22:34)
[2017-11-23] MEDS: ALBUTEROL SO4 2.5/IPRATROPIUM 0.5 INH SOL 3 ML VIAL.NEB. NEB SCH ×2 (16:03→20:14)
--- NOTE | 2017-11-23 16:30 | PN ---
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 (short form) - Note 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: ID Consult dictated UTI/ Sepsis secondary to UTI L Lung mas, possible post-obstructive pneumonia Cachexia Pending repeat BC empiric zosyn
--- NOTE | 2017-11-23 17:31 | CONS ---
INFECTIOUS DISEASE CONSULTATION DATE OF CONSULTATION: DATE OF DICTATION: 11/23/2017 REASON FOR CONSULTATION: The patient is an 82-year-old male evaluated for fever. HISTORY OF PRESENT ILLNESS: History was obtained from the chart as he cannot give a history secondary to his mental state. He has a history of schizophrenia and gastroesophageal reflux as well as bipolar disorder. He was admitted from the skilled nursing after he was noted to have increasing lethargy over the past several days. In the emergency room, patient was hypotensive and tachycardic. He was empirically treated with ceftriaxone for possible sepsis. A CAT scan of the chest shows a known left lung mass which is a presumed malignancy. Urine culture is positive for mixed adan including E. coli and pseudomonas. He is awake. He denies pain when questioned. He offers no focal complaint. No reports of labored breathing, cough, sputum production, vomiting, diarrhea, grossly purulent urine, or infected decubitus ulcers. PAST MEDICAL HISTORY: Positive for schizophrenia and gastroesophageal reflux. ALLERGIES: No known allergies. MEDICATIONS: Include Tylenol, Colace, Seroquel, Zantac, Remeron. SOCIAL HISTORY: He is skilled nursing resident, dependent in activities of daily living. SYSTEMS REVIEW: Neurologic: As per HPI. Cardiac: Negative chest pain and palpitations. Respiratory: Positive for known lung mass. Gastrointestinal: Positive for gastroesophageal reflux. Genitourinary: Positive for urinary tract infection. LABORATORY DATA: White count 9.5, hematocrit 28.4, platelet count 300. BUN 49, creatinine 1.1. Urinalysis: White cells 404. Urine culture: E. coli and pseudomonas. Blood cultures negative. CAT scan shows a large left lung mass. PHYSICAL EXAMINATION: General: He is awake and alert. He is cachectic, chronically ill appearing. Breathing is non-labored. Vital Signs: Temperature 101.4, T-max 103.4; blood pressure 101/73; pulse 107, regular; respirations 24 per minute. HEENT: Temporal wasting. Sclerae are anicteric. Dry mucous membranes. Heart: Sounds S1, S2. Lungs: Scattered rhonchi bilaterally. Abdomen: Soft. No tenderness elicited. No mass, rebound, or rigidity. Extremities: Negative for edema. IMPRESSION: 1. Urinary tract infection, possible sepsis secondary to urinary tract infection. 2. Left lung mass, possible post-obstructive pneumonia. 3. Cachexia. 4. Schizophrenia. PLAN: We will repeat blood cultures. Substitute Zosyn for coverage of urine isolates as well as possible post-obstructive pneumonia. Prognosis is poor. Will follow. Thank you for the kind referral. FERNANDO WHALEN M.D. [id number]
[2017-11-23] MEDS ORDERED: PT OWN MED DRAWER 7, Y5N ONE ×2 (18:08→18:50)
[2017-11-23] MEDS: PIPERACILLIN/TAZOB 3.375 GM 3.375 GM in DEXTROSE 5%-WATER - 50 ML IVPB SCH (18:53)
[2017-11-24] MEDS ORDERED: PT OWN MED DRAWER 7, Y5N ONE ×3 (01:38→17:41)
[2017-11-24] MEDS: PIPERACILLIN/TAZOB 3.375 GM 3.375 GM in DEXTROSE 5%-WATER - 50 ML IVPB SCH ×3 (01:58→19:00)
[2017-11-24] MEDS: SODIUM CHLORIDE 1,000 ML IV SCH ×2 (01:58→16:38)
[2017-11-24] MEDS: ALBUTEROL SO4 2.5/IPRATROPIUM 0.5 INH SOL 3 ML VIAL.NEB. NEB SCH ×4 (07:45→20:35)
[2017-11-24 08:54] LABS: ALBUMIN 1.7 g/dl (3.4-5.0); ANION GAP 11 (8-16); BLOOD UREA NITROGEN 65 mg/dL (7-18); CALCIUM 7.7 mg/dL (8.5-10.1); CHLORIDE 119 mmol/L (98-107); CO2 20 mmol/L (21-32); GLUCOSE,RANDOM 83 mg/dL (74-106); POTASSIUM 4.2 mmol/L (3.5-5.1); SODIUM 150 mmol/L (136-145)
[2017-11-24 08:59] LABS: ALK PHOS 122 U/L (45-117); BILIRUBIN,TOTAL 0.3 mg/dL (0.2-1.0); CREATININE 1.4 mg/dL (0.7-1.3); SGOT/AST 26 U/L (15-37); SGPT/ALT 21 U/L (12-78); TOT PROT 5.1 g/dl (6.4-8.2)
--- NOTE | 2017-11-24 10:11 | PN ---
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, Physician History of Present Illness: pt seen/ examined. chart reviewed All consults noted / appreciated More awake today no distress but congested. berumen changed-- passed lot of urine. asking for water-- swallow eval noted-- on thickened. will give ice chips. having fever. - Current Medication List Current Medications: Active Medications Acetaminophen (Tylenol Suppository -) 650 mg [place] Q4H PRN PRN Reason: FEVER Last Admin: 11/23/17 15:50 Dose: 650 mg Albuterol/Ipratropium (Duoneb -) 1 amp NEB RQID [facility] Last Admin: 11/24/17 07:45 Dose: 1 amp Alprazolam (Xanax -) 0.25 mg PO Q8H PRN PRN Reason: ANXIETY Bacitracin (Bacitracin -) 1 applic TP BID [facility] Last Admin: 11/23/17 22:34 Dose: 1 applic Heparin Sodium (Porcine) (Heparin -) 5,000 unit SQ BID [facility] Last Admin: 11/23/17 22:34 Dose: 5,000 unit Sodium Chloride (Normal Saline -) 1,000 mls @ 75 mls/hr IV ASDIR [facility] Last Admin: 11/24/17 01:58 Dose: 75 mls/hr Piperacillin Sod/Tazobactam (Sod 3.375 gm/ Dextrose) 50 mls @ 100 mls/hr IVPB Q8H-IV KEO PRN Reason: Protocol Last Admin: 11/24/17 01:58 Dose: 100 mls/hr Multivitamins/Minerals/Vitamin C (Tab-A-Vit -) 1 tab PO DAILY [facility] Last Admin: 11/23/17 11:11 Dose: Not Given Ranitidine HCl (Zantac -) 150 mg PO BID [facility] Last Admin: 11/23/17 22:34 Dose: 150 mg - Objective Vital Signs: Vital Signs Temperature 98.8 F 11/24/17 06:00 Pulse Rate 101 H 11/24/17 06:00 Respiratory Rate 18 11/24/17 06:00 Blood Pressure 96/60 11/24/17 06:00 O2 Sat by Pulse Oximetry (%) 94 L 11/23/17 21:00 Constitutional: Yes: Cachectic Eyes: Yes: Conjunctiva Clear Neck: Yes: Supple Cardiovascular: Yes: Regular Rate and Rhythm Respiratory: Yes: Diminished, Rhonchi Gastrointestinal: Yes: Soft Edema: No Peripheral Pulses WNL: No Neurological: Yes: Other (awake). No: Alert Labs: CBC, BMP 11/21/17 08:05 11/24/17 07:30 INR, PTT INR 1.34 (0.82-1.09) H 11/20/17 15:07 Problem List - Problems (1) Anemia Code(s): D64.9 - ANEMIA, UNSPECIFIED Qualifiers: Anemia type: other cause Other causes of anemia: other cause, not classified Qualified Code(s): D64.89 - Other specified anemias (2) Dehydration Code(s): E86.0 - DEHYDRATION (3) Elevated lactic acid level Code(s): R79.89 - OTHER SPECIFIED ABNORMAL FINDINGS OF BLOOD CHEMISTRY (4) Lung mass Code(s): R91.8 - OTHER NONSPECIFIC ABNORMAL FINDING OF LUNG FIELD Assessment/Plan Continue present care Antibiotics Nebulizer treatment Ice chips Pt is dnr/ Di pt has no family Appears appropriate for hospice. will follow will discuss with all consultants Discussed with nursing staff.
[2017-11-24] MEDS: HEPARIN NA (PORCINE) 5,000 UNITS/ML 1ML VIAL SQ SCH ×2 (10:57→22:00)
[2017-11-24] MEDS: MULTIVITAMINS (DAILY MVI) TABLET (FP) PO SCH (10:58)
[2017-11-24] MEDS: RANITIDINE HCL 150 MG TABLET (FP) PO SCH ×2 (10:58→22:02)
--- NOTE | 2017-11-24 12:34 | PN ---
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, STYLE ADVISOR - Note 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: Selected Entries 11/23/17 11/23/17 11/23/17 02:00 06:00 11:07 Breakfast Lunch Supper Temperature 100 F H 100.1 F H 100.1 F H 11/23/17 11/23/17 11/23/17 11:20 12:00 14:48 Breakfast 25% Lunch Supper Temperature 102.4 F H 102.6 F H 11/23/17 11/23/17 11/23/17 15:11 15:48 17:55 Breakfast Lunch 0 Supper Temperature 101.4 F H 99.7 F H 11/23/17 11/23/17 11/24/17 19:25 19:28 02:00 Breakfast Lunch Supper 0 Temperature 100.0 F H 99.8 F H 11/24/17 11/24/17 11/24/17 06:00 11:20 11:40 Breakfast 0 Lunch Supper Temperature 98.8 F 99.8 F H Laboratory Tests 11/21/17 08:05 WBC 9.5 On puree/nectar thickened liquids, Emaciated. Pt refusing all PO, only wants water. PMD ordered ice chips. Reassessed with thin water, with vocal wetness and cough response,consistent with aspiration. Pt is DNR/DNI. Pt's with poor potential for functional improvement? PEG vs Consider comfort care/hospice/allow water? f/u by Palliative care regarding pt's end of life wishes. Concur with ice chips. Pt seems to be aspirating on water which is all he wants to take by mouth.
--- NOTE | 2017-11-24 13:52 | PN ---
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, Physician History of Present Illness: pulmonary no distress,awake,afebrile - Current Medication List Current Medications: Active Medications Acetaminophen (Tylenol Suppository -) 650 mg [place] Q4H PRN PRN Reason: FEVER Last Admin: 11/23/17 15:50 Dose: 650 mg Albuterol/Ipratropium (Duoneb -) 1 amp NEB RQID [facility] Last Admin: 11/24/17 11:20 Dose: Not Given Alprazolam (Xanax -) 0.25 mg PO Q8H PRN PRN Reason: ANXIETY Bacitracin (Bacitracin -) 1 applic TP BID [facility] Last Admin: 11/23/17 22:34 Dose: 1 applic Heparin Sodium (Porcine) (Heparin -) 5,000 unit SQ BID [facility] Last Admin: 11/24/17 10:57 Dose: 5,000 unit Sodium Chloride (Normal Saline -) 1,000 mls @ 75 mls/hr IV ASDIR [facility] Last Admin: 11/24/17 01:58 Dose: 75 mls/hr Piperacillin Sod/Tazobactam (Sod 3.375 gm/ Dextrose) 50 mls @ 100 mls/hr IVPB Q8H-IV KEO PRN Reason: Protocol Last Admin: 11/24/17 10:57 Dose: 100 mls/hr Multivitamins/Minerals/Vitamin C (Tab-A-Vit -) 1 tab PO DAILY [facility] Last Admin: 11/24/17 10:58 Dose: Not Given Ranitidine HCl (Zantac -) 150 mg PO BID [facility] Last Admin: 11/24/17 10:58 Dose: Not Given - Objective Vital Signs: Vital Signs Temperature 99.8 F H 11/24/17 11:20 Pulse Rate 99 H 11/24/17 10:49 Respiratory Rate 20 11/24/17 10:49 Blood Pressure 104/69 11/24/17 10:49 O2 Sat by Pulse Oximetry (%) 94 L 11/23/17 21:00 Constitutional: Yes: Calm, Cachectic Eyes: Yes: WNL HENT: Yes: WNL Neck: Yes: WNL Cardiovascular: Yes: Regular Rate and Rhythm, S1, S2 Respiratory: Yes: Rhonchi (few rhonchi) Gastrointestinal: Yes: Normal Bowel Sounds, Soft Extremities: Yes: WNL Edema: No Labs: CBC, BMP 11/21/17 08:05 11/24/17 07:30 INR, PTT INR 1.34 (0.82-1.09) H 11/20/17 15:07 Problem List - Problems (1) Anemia Code(s): D64.9 - ANEMIA, UNSPECIFIED Qualifiers: Anemia type: other cause Other causes of anemia: other cause, not classified Qualified Code(s): D64.89 - Other specified anemias (2) Dehydration Code(s): E86.0 - DEHYDRATION (3) Elevated lactic acid level Code(s): R79.89 - OTHER SPECIFIED ABNORMAL FINDINGS OF BLOOD CHEMISTRY (4) Lung mass Code(s): R91.8 - OTHER NONSPECIFIC ABNORMAL FINDING OF LUNG FIELD (5) Schizophrenia Code(s): F20.9 - SCHIZOPHRENIA, UNSPECIFIED Assessment/Plan Assessment/Plan LLL Lung Mass likely malignant Failure to Thrive Schizophrenia Depression Fever UTI + ECOLI - lung mass likely malignant but pt with poor functional status and appears very malnourished, likely would not be a candidate for treatment even if he was diagnosed with a malignancy - would defer invasive diagnostic procedures at this time - DVT prophylaxis - abx -inhaled bronchodilators DR DILLON
[2017-11-24] MEDS: BACITRACIN 15 GM TUBE TOPICAL OINTMENT TP SCH ×2 (14:00→21:59)
[2017-11-24] MEDS: VANCOMYCIN 1,000 MG in DEXTROSE 5%-WATER - 250 ML IVPB SCH (16:40)
--- NOTE | 2017-11-24 19:30 | PN ---
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, Physician History of Present Illness: + BC GPCCL Pt cachectic, poorly responsive Denies pain Temps down- low grade - Current Medication List Current Medications: Active Medications Acetaminophen (Tylenol Suppository -) 650 mg [place] Q4H PRN PRN Reason: FEVER Last Admin: 11/23/17 15:50 Dose: 650 mg Albuterol/Ipratropium (Duoneb -) 1 amp NEB RQID [facility] Last Admin: 11/24/17 16:20 Dose: 1 amp Alprazolam (Xanax -) 0.25 mg PO Q8H PRN PRN Reason: ANXIETY Bacitracin (Bacitracin -) 1 applic TP BID [facility] Last Admin: 11/24/17 14:00 Dose: 1 applic Heparin Sodium (Porcine) (Heparin -) 5,000 unit SQ BID [facility] Last Admin: 11/24/17 10:57 Dose: 5,000 unit Sodium Chloride (Normal Saline -) 1,000 mls @ 75 mls/hr IV ASDIR [facility] Last Admin: 11/24/17 16:38 Dose: 75 mls/hr Piperacillin Sod/Tazobactam (Sod 3.375 gm/ Dextrose) 50 mls @ 100 mls/hr IVPB Q8H-IV KEO PRN Reason: Protocol Last Admin: 11/24/17 19:00 Dose: 100 mls/hr Vancomycin HCl 1,000 mg/ (Dextrose) 250 mls @ 166.667 mls/hr IVPB DAILY@1700 [facility] Last Admin: 11/24/17 16:40 Dose: 166.667 mls/hr Multivitamins/Minerals/Vitamin C (Tab-A-Vit -) 1 tab PO DAILY [facility] Last Admin: 11/24/17 10:58 Dose: Not Given Ranitidine HCl (Zantac -) 150 mg PO BID [facility] Last Admin: 11/24/17 10:58 Dose: Not Given - Objective Vital Signs: Vital Signs Temperature 99.8 F H 11/24/17 14:29 Pulse Rate 87 11/24/17 18:00 Respiratory Rate 16 11/24/17 18:00 Blood Pressure 111/75 11/24/17 18:00 O2 Sat by Pulse Oximetry (%) 94 L 11/23/17 21:00 Constitutional: Yes: No Distress, Cachectic Cardiovascular: Yes: Regular Rate and Rhythm, S1, S2 Respiratory: Yes: CTA Bilaterally Gastrointestinal: Yes: Normal Bowel Sounds, Soft Labs: CBC, BMP 11/21/17 08:05 11/24/17 07:30 INR, PTT INR 1.34 (0.82-1.09) H 11/20/17 15:07 Assessment/Plan + BC GPCCL ? significance UTI Probable lung malignancy Cachexia Azotemia Await BC result Continue zosyn for treatment of UTI and possible post-obstructive pneumonia Empiric vancomycin pending BC result
[2017-11-24] MEDS: ALPRAZolam 0.25 MG TABLET PO PRN (22:06)
[2017-11-25] MEDS ORDERED: PT OWN MED DRAWER 7, Y5N ONE ×6 (00:30→18:01)
[2017-11-25] MEDS: PIPERACILLIN/TAZOB 3.375 GM 3.375 GM in DEXTROSE 5%-WATER - 50 ML IVPB SCH ×3 (02:03→20:07)
[2017-11-25] MEDS: ALBUTEROL SO4 2.5/IPRATROPIUM 0.5 INH SOL 3 ML VIAL.NEB. NEB SCH ×4 (07:30→21:45)
[2017-11-25 08:21] LABS: BASO % 0.2 % (0-2.0); EOS % 0.1 % (0-4.5); HEMATOCRIT 23.9 % (35.4-49); HEMOGLOBIN 7.9 GM/dL (11.7-16.9); MCH 29.1 pg (25.7-33.7); MCHC 32.8 g/dl (32.0-35.9); MEAN CELL VOLUME 88.6 fl (80-96); MEAN PLT VOLUME 7.5 fl (7.5-11.1); NEUT % 90.7 % (42.8-82.8); PLATELET COUNT 358 K/MM3 (134-434); RDW 16.4 % (11.9-15.9); WHITE BLOOD COUNT 11.7 K/mm3 (4.0-10.0)
[2017-11-25 08:30] LABS: ALBUMIN 1.7 g/dl (3.4-5.0); ANION GAP 13 (8-16); BLOOD UREA NITROGEN 38 mg/dL (7-18); CALCIUM 8.1 mg/dL (8.5-10.1); CHLORIDE 122 mmol/L (98-107); CO2 19 mmol/L (21-32); GLUCOSE,RANDOM 61 mg/dL (74-106); POTASSIUM 3.4 mmol/L (3.5-5.1); SODIUM 154 mmol/L (136-145)
[2017-11-25 08:35] LABS: ALK PHOS 117 U/L (45-117); BILIRUBIN,TOTAL 0.4 mg/dL (0.2-1.0); CREATININE 0.9 mg/dL (0.7-1.3); SGOT/AST 28 U/L (15-37); SGPT/ALT 22 U/L (12-78); TOT PROT 5.2 g/dl (6.4-8.2)
--- NOTE | 2017-11-25 09:36 | PN ---
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 (short form) - Note 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: presumptive MRSA blood cultures 11/23 started on vancomycin yesterday fevers trending down awake no complaints cachectic Vital Signs Period Temp Pulse Resp BP Sys/Heard Pulse Ox Last 24 Hr 98.8 F-99.8 F 87-105 16-20 101-111/63-75 no conjunctival hemhorages cor-rrr lungs scattered rhonchi decreased bs at bases abd firm, nt ext no edema he has multiple skin tears, right arm, suprapubic area, penis also on sacrum- stage 2 ulcers no phlebitis +berumen CBC, BMP 11/25/17 07:50 11/25/17 07:50 Microbiology 11/23/17 18:00 Blood - Peripheral Venous Blood Culture - Preliminary Presumptive Mrsa (Pbp2a Pos) 11/23/17 21:45 Blood - Peripheral Venous Blood Culture - Preliminary Presumptive Mrsa (Pbp2a Pos) 11/20/17 15:07 Blood - Peripheral Venous Blood Culture - Preliminary NO GROWTH OBTAINED AFTER 96 HOURS, INCUBATION TO CONTINUE FOR 1 DAYS. 11/20/17 15:07 Blood - Peripheral Venous Blood Culture - Preliminary NO GROWTH OBTAINED AFTER 96 HOURS, INCUBATION TO CONTINUE FOR 1 DAYS. 11/20/17 15:00 Urine - Urine Clean Catch Urine Culture - Final Escherichia Coli Pseudomonas Aeruginosa Current Medications Acetaminophen (Tylenol Suppository -) 650 mg [place] Q4H PRN PRN Reason: FEVER Last Admin: 11/23/17 15:50 Dose: 650 mg Albuterol/Ipratropium (Duoneb -) 1 amp NEB RQID [facility] Last Admin: 11/25/17 07:30 Dose: 1 amp Alprazolam (Xanax -) 0.25 mg PO Q8H PRN PRN Reason: ANXIETY Last Admin: 11/24/17 22:06 Dose: 0.25 mg Bacitracin (Bacitracin -) 1 applic TP BID [facility] Last Admin: 11/24/17 21:59 Dose: 1 applic Heparin Sodium (Porcine) (Heparin -) 5,000 unit SQ BID [facility] Last Admin: 11/24/17 22:00 Dose: 5,000 unit Sodium Chloride (Normal Saline -) 1,000 mls @ 75 mls/hr IV ASDIR [facility] Last Admin: 11/24/17 16:38 Dose: 75 mls/hr Piperacillin Sod/Tazobactam (Sod 3.375 gm/ Dextrose) 50 mls @ 100 mls/hr IVPB Q8H-IV KEO PRN Reason: Protocol Last Admin: 11/25/17 02:03 Dose: 100 mls/hr Vancomycin HCl 1,000 mg/ (Dextrose) 250 mls @ 166.667 mls/hr IVPB DAILY@1700 [facility] Last Admin: 11/24/17 16:40 Dose: 166.667 mls/hr Multivitamins/Minerals/Vitamin C (Tab-A-Vit -) 1 tab PO DAILY [facility] Last Admin: 11/24/17 10:58 Dose: Not Given Ranitidine HCl (Zantac -) 150 mg PO BID [facility] Last Admin: 11/24/17 22:02 Dose: 150 mg a/p mrsa bacteremia- ?skin source continue vancomycin, repeat blood cultures in am uti/possible postobstructive pneumonia-continue zosyn lung mass
[2017-11-25] MEDS: HEPARIN NA (PORCINE) 5,000 UNITS/ML 1ML VIAL SQ SCH (11:25)
[2017-11-25] MEDS: RANITIDINE HCL 150 MG TABLET (FP) PO SCH ×2 (11:25→21:17)
[2017-11-25] MEDS: MULTIVITAMINS (DAILY MVI) TABLET (FP) PO SCH (11:25)
[2017-11-25] MEDS: BACITRACIN 15 GM TUBE TOPICAL OINTMENT TP SCH ×2 (11:39→22:08)
--- NOTE | 2017-11-25 12:05 | PN ---
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, Physician Chief Complaint: awake no distress appetite poor - Current Medication List Current Medications: Active Medications Acetaminophen (Tylenol Suppository -) 650 mg [place] Q4H PRN PRN Reason: FEVER Last Admin: 11/23/17 15:50 Dose: 650 mg Albuterol/Ipratropium (Duoneb -) 1 amp NEB RQID [facility] Last Admin: 11/25/17 11:05 Dose: 1 amp Alprazolam (Xanax -) 0.25 mg PO Q8H PRN PRN Reason: ANXIETY Last Admin: 11/24/17 22:06 Dose: 0.25 mg Bacitracin (Bacitracin -) 1 applic TP BID [facility] Last Admin: 11/25/17 11:39 Dose: 1 applic Heparin Sodium (Porcine) (Heparin -) 5,000 unit SQ BID [facility] Last Admin: 11/25/17 11:25 Dose: Not Given Sodium Chloride (Normal Saline -) 1,000 mls @ 75 mls/hr IV ASDIR [facility] Last Admin: 11/24/17 16:38 Dose: 75 mls/hr Piperacillin Sod/Tazobactam (Sod 3.375 gm/ Dextrose) 50 mls @ 100 mls/hr IVPB Q8H-IV KEO PRN Reason: Protocol Last Admin: 11/25/17 11:25 Dose: 100 mls/hr Vancomycin HCl 1,000 mg/ (Dextrose) 250 mls @ 166.667 mls/hr IVPB DAILY@1700 [facility] Last Admin: 11/24/17 16:40 Dose: 166.667 mls/hr Multivitamins/Minerals/Vitamin C (Tab-A-Vit -) 1 tab PO DAILY [facility] Last Admin: 11/25/17 11:25 Dose: 1 tab Ranitidine HCl (Zantac -) 150 mg PO BID [facility] Last Admin: 11/25/17 11:25 Dose: 150 mg - Objective Vital Signs: Vital Signs Temperature 98.8 F 11/25/17 06:00 Pulse Rate 105 H 11/25/17 06:00 Respiratory Rate 20 11/25/17 06:00 Blood Pressure 102/65 11/25/17 06:00 O2 Sat by Pulse Oximetry (%) 94 L 11/23/17 21:00 Constitutional: Yes: No Distress Cardiovascular: Yes: Regular Rate and Rhythm Respiratory: Yes: Diminished, Rhonchi Gastrointestinal: Yes: Normal Bowel Sounds, Soft. No: Tenderness Edema: No Labs: CBC, BMP 11/25/17 07:50 11/25/17 07:50 INR, PTT INR 1.34 (0.82-1.09) H 11/20/17 15:07 Problem List - Problems (1) Anemia Code(s): D64.9 - ANEMIA, UNSPECIFIED Qualifiers: Anemia type: other cause Other causes of anemia: other cause, not classified Qualified Code(s): D64.89 - Other specified anemias (2) Dehydration Code(s): E86.0 - DEHYDRATION (3) Elevated lactic acid level Code(s): R79.89 - OTHER SPECIFIED ABNORMAL FINDINGS OF BLOOD CHEMISTRY (4) Lung mass Code(s): R91.8 - OTHER NONSPECIFIC ABNORMAL FINDING OF LUNG FIELD (5) Uremia Code(s): N19 - UNSPECIFIED KIDNEY FAILURE (6) UTI (urinary tract infection) Code(s): N39.0 - URINARY TRACT INFECTION, SITE NOT SPECIFIED Qualifiers: Urinary tract infection type: site unspecified Hematuria presence: with hematuria Qualified Code(s): N39.0 - Urinary tract infection, site not specified; R31.9 - Hematuria, unspecified; R31.9 - Hematuria, unspecified (7) Sepsis Assessment/Plan: present on admission iv antibiotics iv fluids Code(s): A41.9 - SEPSIS, UNSPECIFIED ORGANISM (8) Malnutrition Code(s): E46 - UNSPECIFIED PROTEIN-CALORIE MALNUTRITION Qualifiers: Protein-calorie malnutrition severity: severe Assessment/Plan PLAN iv antibiotics change fluids has poor po intake may need to consider palliative care if no improvement nebs Pt is DNR/DNI
[2017-11-25] MEDS ORDERED: AMINO ACIDS 4.25%/D5W 1,000 ML IV SCH (12:30)
--- NOTE | 2017-11-25 12:54 | PN ---
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, Physician History of Present Illness: pulmonary awake,-resp distress - Current Medication List Current Medications: Active Medications Acetaminophen (Tylenol Suppository -) 650 mg [place] Q4H PRN PRN Reason: FEVER Last Admin: 11/23/17 15:50 Dose: 650 mg Albuterol/Ipratropium (Duoneb -) 1 amp NEB RQID [facility] Last Admin: 11/25/17 11:05 Dose: 1 amp Alprazolam (Xanax -) 0.25 mg PO Q8H PRN PRN Reason: ANXIETY Last Admin: 11/24/17 22:06 Dose: 0.25 mg Bacitracin (Bacitracin -) 1 applic TP BID [facility] Last Admin: 11/25/17 11:39 Dose: 1 applic Piperacillin Sod/Tazobactam (Sod 3.375 gm/ Dextrose) 50 mls @ 100 mls/hr IVPB Q8H-IV KEO PRN Reason: Protocol Last Admin: 11/25/17 11:25 Dose: 100 mls/hr Vancomycin HCl 1,000 mg/ (Dextrose) 250 mls @ 166.667 mls/hr IVPB DAILY@1700 [facility] Last Admin: 11/24/17 16:40 Dose: 166.667 mls/hr Amino Acids (Clinimix -) 1,000 mls @ 42 mls/hr IV Q12H [facility] Multivitamins/Minerals/Vitamin C (Tab-A-Vit -) 1 tab PO DAILY [facility] Last Admin: 11/25/17 11:25 Dose: 1 tab Potassium Chloride (Potassium Chloride Oral Liquid) 40 meq PO ONCE ONE Stop: 11/25/17 12:20 Ranitidine HCl (Zantac -) 150 mg PO BID [facility] Last Admin: 11/25/17 11:25 Dose: 150 mg - Objective Vital Signs: Vital Signs Temperature 98.8 F 11/25/17 06:00 Pulse Rate 105 H 11/25/17 06:00 Respiratory Rate 20 11/25/17 06:00 Blood Pressure 102/65 11/25/17 06:00 O2 Sat by Pulse Oximetry (%) 94 L 11/23/17 21:00 Constitutional: Yes: Calm, Cachectic Eyes: Yes: WNL HENT: Yes: WNL, Tonsillar Exudate Cardiovascular: Yes: Regular Rate and Rhythm, S1, S2 Respiratory: Yes: Rhonchi (few rhonchi) Gastrointestinal: Yes: Normal Bowel Sounds, Soft Extremities: Yes: WNL Edema: No Labs: CBC, BMP 11/25/17 07:50 11/25/17 07:50 INR, PTT INR 1.34 (0.82-1.09) H 11/20/17 15:07 Problem List - Problems (1) Anemia Code(s): D64.9 - ANEMIA, UNSPECIFIED Qualifiers: Anemia type: other cause Other causes of anemia: other cause, not classified Qualified Code(s): D64.89 - Other specified anemias (2) Dehydration Code(s): E86.0 - DEHYDRATION (3) Elevated lactic acid level Code(s): R79.89 - OTHER SPECIFIED ABNORMAL FINDINGS OF BLOOD CHEMISTRY (4) Lung mass Code(s): R91.8 - OTHER NONSPECIFIC ABNORMAL FINDING OF LUNG FIELD (5) Schizophrenia Code(s): F20.9 - SCHIZOPHRENIA, UNSPECIFIED Assessment/Plan Assessment/Plan LLL Lung Mass likely malignant Failure to Thrive Schizophrenia Depression Fever UTI + ECOLI - lung mass likely malignant but pt with poor functional status and appears very malnourished, likely would not be a candidate for treatment even if he was diagnosed with a malignancy - would defer invasive diagnostic procedures at this time - DVT prophylaxis - abx -inhaled bronchodilators DR DILLON
[2017-11-25] MEDS ORDERED: AMINO ACIDS/PROTEIN HYDROLYS 30 ML LIQUID.PKT PO SCH (14:30)
[2017-11-25] MEDS ORDERED: POTASSIUM CHLORIDE ORAL LIQUID 20 MEQ/15 ML PO ONE (16:45)
[2017-11-25] MEDS: AMINO ACIDS/PROTEIN HYDROLYS 30 ML LIQUID.PKT PO SCH ×2 (16:46→16:55)
[2017-11-25] MEDS: POTASSIUM CHLORIDE ORAL LIQUID 20 MEQ/15 ML PO ONE ×2 (16:47→16:55)
[2017-11-25] MEDS: VANCOMYCIN 1,000 MG in DEXTROSE 5%-WATER - 250 ML IVPB SCH (16:51)
[2017-11-25] MEDS ORDERED: KCL 10 MEQ IVPB 10 MEQ/100 ML INFUS.BAG IVPB SCH (17:45)
[2017-11-25] MEDS: POTASSIUM CHLORIDE 10 MEQ in SODIUM CHLORIDE 100 ML IVPB SCH ×2 (20:48→22:07)
[2017-11-25] MEDS: ALPRAZolam 0.25 MG TABLET PO PRN (21:18)
[2017-11-25] MEDS: D5-1/2NS+20 MEQ KCL - 20 MEQ/1,000 ML INFUS.BAG IV SCH (22:24)
[2017-11-26] MEDS: PIPERACILLIN/TAZOB 3.375 GM 3.375 GM in DEXTROSE 5%-WATER - 50 ML IVPB SCH ×3 (01:16→18:41)
[2017-11-26 08:13] LABS: HEMATOCRIT 28.8 % (35.4-49); HEMOGLOBIN 9.5 GM/dL (11.7-16.9); MCH 29.6 pg (25.7-33.7); MCHC 32.9 g/dl (32.0-35.9); MEAN CELL VOLUME 89.9 fl (80-96); MEAN PLT VOLUME 7.5 fl (7.5-11.1); PLATELET COUNT 392 K/MM3 (134-434); RDW 17.1 % (11.9-15.9); WHITE BLOOD COUNT 10.8 K/mm3 (4.0-10.0)
[2017-11-26] MEDS: ALBUTEROL SO4 2.5/IPRATROPIUM 0.5 INH SOL 3 ML VIAL.NEB. NEB SCH ×4 (08:21→20:39)
[2017-11-26 08:37] LABS: ANION GAP 11 (8-16); BLOOD UREA NITROGEN 27 mg/dL (7-18); CALCIUM 8.6 mg/dL (8.5-10.1); CHLORIDE 123 mmol/L (98-107); CO2 22 mmol/L (21-32); GLUCOSE,RANDOM 72 mg/dL (74-106); POTASSIUM 4.6 mmol/L (3.5-5.1); SODIUM 156 mmol/L (136-145)
[2017-11-26] MEDS ORDERED: PT OWN MED DRAWER 7, Y5N ONE ×2 (10:09→17:00)
--- NOTE | 2017-11-26 10:16 | PN ---
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 (short form) - Note 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: MRSA confirmed in blood cultures- on vancomycin day #3 awake no complaints cachectic Vital Signs Period Temp Pulse Resp BP Sys/Heard Pulse Ox Last 24 Hr 98.3 F-99.9 F 99-114 18-20 108-112/64-75 96 cor-rrr lungs decreased bs at bases abd soft,nt ext no edema berumen CBC, BMP 11/26/17 06:48 11/26/17 06:48 Microbiology 11/23/17 18:00 Blood - Peripheral Venous Blood Culture - Final Presumptive Mrsa (Pbp2a Pos) 11/23/17 21:45 Blood - Peripheral Venous Blood Culture - Final Mr S Aureus 11/20/17 15:07 Blood - Peripheral Venous Blood Culture - Final NO GROWTH AFTER 5 DAYS INCUBATION 11/20/17 15:07 Blood - Peripheral Venous Blood Culture - Final NO GROWTH AFTER 5 DAYS INCUBATION 11/20/17 15:00 Urine - Urine Clean Catch Urine Culture - Final Escherichia Coli Pseudomonas Aeruginosa a/p mrsa bacteremia- ?skin source repeat blood cultures sent vancomycin day #3 echo vanco level today uti/possible postobstructive pneumonia-continue zosyn lung mass overall prognosis poor
[2017-11-26] MEDS: MULTIVITAMINS (DAILY MVI) TABLET (FP) PO SCH (10:28)
[2017-11-26] MEDS: RANITIDINE HCL 150 MG TABLET (FP) PO SCH ×2 (10:28→21:39)
[2017-11-26] MEDS: AMINO ACIDS/PROTEIN HYDROLYS 30 ML LIQUID.PKT PO SCH ×2 (10:28→17:03)
[2017-11-26] MEDS: BACITRACIN 15 GM TUBE TOPICAL OINTMENT TP SCH ×2 (10:29→21:39)
--- NOTE | 2017-11-26 12:05 | PN ---
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, Physician Chief Complaint: awake no distress appetite poor - Current Medication List Current Medications: Active Medications Acetaminophen (Tylenol Suppository -) 650 mg [place] Q4H PRN PRN Reason: FEVER Last Admin: 11/23/17 15:50 Dose: 650 mg Albuterol/Ipratropium (Duoneb -) 1 amp NEB RQID [facility] Last Admin: 11/26/17 11:57 Dose: Not Given Alprazolam (Xanax -) 0.25 mg PO Q8H PRN PRN Reason: ANXIETY Last Admin: 11/25/17 21:18 Dose: 0.25 mg Amino Acids (Prosource No Carb Liquid Pkt) 30 ml PO BIDWM [facility] Last Admin: 11/26/17 10:28 Dose: 30 ml Bacitracin (Bacitracin -) 1 applic TP BID [facility] Last Admin: 11/26/17 10:29 Dose: 1 applic Piperacillin Sod/Tazobactam (Sod 3.375 gm/ Dextrose) 50 mls @ 100 mls/hr IVPB Q8H-IV KEO PRN Reason: Protocol Last Admin: 11/26/17 10:28 Dose: 100 mls/hr Vancomycin HCl 1,000 mg/ (Dextrose) 250 mls @ 166.667 mls/hr IVPB DAILY@1700 [facility] Last Admin: 11/25/17 16:51 Dose: 166.667 mls/hr Potassium Chloride/Dextrose/Sod Cl (D5-1/2ns+20 Meq Kcl -) 20 meq in 1,000 mls @ 75 mls/hr IV ASDIR [facility] Last Admin: 11/25/17 22:24 Dose: 75 mls/hr Multivitamins/Minerals/Vitamin C (Tab-A-Vit -) 1 tab PO DAILY [facility] Last Admin: 11/26/17 10:28 Dose: 1 tab Ranitidine HCl (Zantac -) 150 mg PO BID [facility] Last Admin: 11/26/17 10:28 Dose: 150 mg - Objective Vital Signs: Vital Signs Temperature 99.8 F H 11/26/17 10:53 Pulse Rate 103 H 11/26/17 10:53 Respiratory Rate 22 11/26/17 10:53 Blood Pressure 123/93 11/26/17 10:53 O2 Sat by Pulse Oximetry (%) 96 11/25/17 21:00 Constitutional: Yes: No Distress, Cachectic Cardiovascular: Yes: Regular Rate and Rhythm Respiratory: Yes: Diminished, Rhonchi Gastrointestinal: Yes: Normal Bowel Sounds, Soft. No: Tenderness Edema: No Labs: CBC, BMP 11/26/17 06:48 11/26/17 06:48 INR, PTT INR 1.34 (0.82-1.09) H 11/20/17 15:07 Problem List - Problems (1) Anemia Code(s): D64.9 - ANEMIA, UNSPECIFIED Qualifiers: Anemia type: other cause Other causes of anemia: other cause, not classified Qualified Code(s): D64.89 - Other specified anemias (2) Dehydration Code(s): E86.0 - DEHYDRATION (3) Elevated lactic acid level Code(s): R79.89 - OTHER SPECIFIED ABNORMAL FINDINGS OF BLOOD CHEMISTRY (4) Lung mass Code(s): R91.8 - OTHER NONSPECIFIC ABNORMAL FINDING OF LUNG FIELD (5) Uremia Code(s): N19 - UNSPECIFIED KIDNEY FAILURE (6) UTI (urinary tract infection) Code(s): N39.0 - URINARY TRACT INFECTION, SITE NOT SPECIFIED Qualifiers: Urinary tract infection type: site unspecified Hematuria presence: with hematuria Qualified Code(s): N39.0 - Urinary tract infection, site not specified; R31.9 - Hematuria, unspecified; R31.9 - Hematuria, unspecified (7) Sepsis Code(s): A41.9 - SEPSIS, UNSPECIFIED ORGANISM (8) Malnutrition Code(s): E46 - UNSPECIFIED PROTEIN-CALORIE MALNUTRITION Qualifiers: Protein-calorie malnutrition severity: severe (9) Pneumonia Code(s): J18.9 - PNEUMONIA, UNSPECIFIED ORGANISM (10) MRSA bacteremia Code(s): R78.81 - BACTEREMIA Assessment/Plan PLAN iv antibiotics Blood cultures -- MRSA on IV vanco change fluids has poor po intake may need to consider palliative care if no improvement nebs Pt is DNR/DNI
--- NOTE | 2017-11-26 13:40 | PN ---
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, Physician History of Present Illness: pulmonary awake,-resp distress,+ low grade temp - Current Medication List Current Medications: Active Medications Acetaminophen (Tylenol Suppository -) 650 mg [place] Q4H PRN PRN Reason: FEVER Last Admin: 11/23/17 15:50 Dose: 650 mg Albuterol/Ipratropium (Duoneb -) 1 amp NEB RQID [facility] Last Admin: 11/26/17 11:57 Dose: Not Given Alprazolam (Xanax -) 0.25 mg PO Q8H PRN PRN Reason: ANXIETY Last Admin: 11/25/17 21:18 Dose: 0.25 mg Amino Acids (Prosource No Carb Liquid Pkt) 30 ml PO BIDWM [facility] Last Admin: 11/26/17 10:28 Dose: 30 ml Bacitracin (Bacitracin -) 1 applic TP BID [facility] Last Admin: 11/26/17 10:29 Dose: 1 applic Piperacillin Sod/Tazobactam (Sod 3.375 gm/ Dextrose) 50 mls @ 100 mls/hr IVPB Q8H-IV [facility] PRN Reason: Protocol Last Admin: 11/26/17 10:28 Dose: 100 mls/hr Vancomycin HCl 1,000 mg/ (Dextrose) 250 mls @ 166.667 mls/hr IVPB DAILY@1700 [facility] Last Admin: 11/25/17 16:51 Dose: 166.667 mls/hr Potassium Chloride/Dextrose/Sod Cl (D5-1/2ns+20 Meq Kcl -) 20 meq in 1,000 mls @ 75 mls/hr IV ASDIR [facility] Last Admin: 11/25/17 22:24 Dose: 75 mls/hr Multivitamins/Minerals/Vitamin C (Tab-A-Vit -) 1 tab PO DAILY [facility] Last Admin: 11/26/17 10:28 Dose: 1 tab Ranitidine HCl (Zantac -) 150 mg PO BID [facility] Last Admin: 11/26/17 10:28 Dose: 150 mg - Objective Vital Signs: Vital Signs Temperature 99.8 F H 11/26/17 10:53 Pulse Rate 103 H 11/26/17 10:53 Respiratory Rate 22 11/26/17 10:53 Blood Pressure 123/93 11/26/17 10:53 O2 Sat by Pulse Oximetry (%) 96 11/25/17 21:00 Constitutional: Yes: Calm, Cachectic Eyes: Yes: WNL HENT: Yes: WNL Neck: Yes: WNL Cardiovascular: Yes: Regular Rate and Rhythm, S1, S2 Respiratory: Yes: Rhonchi (few scattered rhonchi) Gastrointestinal: Yes: Normal Bowel Sounds, Soft Extremities: Yes: WNL Edema: No Labs: CBC, BMP 11/26/17 06:48 11/26/17 06:48 INR, PTT INR 1.34 (0.82-1.09) H 11/20/17 15:07 Problem List - Problems (1) Anemia Code(s): D64.9 - ANEMIA, UNSPECIFIED Qualifiers: Anemia type: other cause Other causes of anemia: other cause, not classified Qualified Code(s): D64.89 - Other specified anemias (2) Dehydration Code(s): E86.0 - DEHYDRATION (3) Elevated lactic acid level Code(s): R79.89 - OTHER SPECIFIED ABNORMAL FINDINGS OF BLOOD CHEMISTRY (4) Lung mass Code(s): R91.8 - OTHER NONSPECIFIC ABNORMAL FINDING OF LUNG FIELD (5) Schizophrenia Code(s): F20.9 - SCHIZOPHRENIA, UNSPECIFIED Assessment/Plan Assessment/Plan LLL Lung Mass likely malignant Failure to Thrive Schizophrenia Depression Fever UTI + ECOLI HYPERNATREMIA - lung mass likely malignant but pt with poor functional status and appears very malnourished, likely would not be a candidate for treatment even if he was diagnosed with a malignancy - would defer invasive diagnostic procedures at this time - DVT prophylaxis - abx -inhaled bronchodilators - IVF DR DILLON
[2017-11-26] MEDS: VANCOMYCIN 1,000 MG in DEXTROSE 5%-WATER - 250 ML IVPB SCH (17:03)
[2017-11-26] MEDS: D5-1/2NS+20 MEQ KCL - 20 MEQ/1,000 ML INFUS.BAG IV SCH (21:38)
[2017-11-26] MEDS: ALPRAZolam 0.25 MG TABLET PO PRN (21:39)
[2017-11-27] MEDS: PIPERACILLIN/TAZOB 3.375 GM 3.375 GM in DEXTROSE 5%-WATER - 50 ML IVPB SCH ×3 (02:26→17:53)
[2017-11-27] MEDS: ALBUTEROL SO4 2.5/IPRATROPIUM 0.5 INH SOL 3 ML VIAL.NEB. NEB SCH ×4 (07:35→20:53)
[2017-11-27] MEDS ORDERED: PT OWN MED DRAWER 7, Y5N ONE ×2 (09:56→17:50)
--- NOTE | 2017-11-27 10:02 | PN ---
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, Physician History of Present Illness: Awake, lethargic Chronically ill appearing. Cachectic Denies pain Breathing non-labored Low grade temps BC MRSA Repeat BC no growth - Current Medication List Current Medications: Active Medications Acetaminophen (Tylenol Suppository -) 650 mg [place] Q4H PRN PRN Reason: FEVER Last Admin: 11/23/17 15:50 Dose: 650 mg Albuterol/Ipratropium (Duoneb -) 1 amp NEB RQID [facility] Last Admin: 11/27/17 07:35 Dose: 1 amp Alprazolam (Xanax -) 0.25 mg PO Q8H PRN PRN Reason: ANXIETY Last Admin: 11/26/17 21:39 Dose: 0.25 mg Amino Acids (Prosource No Carb Liquid Pkt) 30 ml PO BIDWM [facility] Last Admin: 11/26/17 17:03 Dose: 30 ml Bacitracin (Bacitracin -) 1 applic TP BID [facility] Last Admin: 11/26/17 21:39 Dose: 1 applic Piperacillin Sod/Tazobactam (Sod 3.375 gm/ Dextrose) 50 mls @ 100 mls/hr IVPB Q8H-IV [facility] PRN Reason: Protocol Last Admin: 11/27/17 02:26 Dose: 100 mls/hr Vancomycin HCl 1,000 mg/ (Dextrose) 250 mls @ 166.667 mls/hr IVPB DAILY@1700 [facility] Last Admin: 11/26/17 17:03 Dose: 166.667 mls/hr Potassium Chloride/Dextrose/Sod Cl (D5-1/2ns+20 Meq Kcl -) 20 meq in 1,000 mls @ 75 mls/hr IV ASDIR [facility] Last Admin: 11/26/17 21:38 Dose: Not Given Multivitamins/Minerals/Vitamin C (Tab-A-Vit -) 1 tab PO DAILY [facility] Last Admin: 11/26/17 10:28 Dose: 1 tab Ranitidine HCl (Zantac -) 150 mg PO BID [facility] Last Admin: 11/26/17 21:39 Dose: 150 mg - Objective Vital Signs: Vital Signs Temperature 99.2 F 11/27/17 06:35 Pulse Rate 84 11/27/17 06:35 Respiratory Rate 20 11/27/17 06:35 Blood Pressure 98/70 11/27/17 06:35 O2 Sat by Pulse Oximetry (%) 96 11/26/17 21:00 Constitutional: Yes: No Distress, Cachectic Cardiovascular: Yes: Regular Rate and Rhythm, S1, S2 Respiratory: Yes: Diminished Gastrointestinal: Yes: Normal Bowel Sounds, Soft. No: Tenderness Edema: No Labs: CBC, BMP 11/26/17 06:48 11/26/17 06:48 INR, PTT INR 1.34 (0.82-1.09) H 11/20/17 15:07 Assessment/Plan MRSA bacteremia UTI Probable lung malignancy Possible post-obstructive pneumonia Cachexia Azotemia Continue vancomycin/ zosyn for treatment of MRSA bacteremia ,UTI , possible post-obstructive pneumonia Check repeat BC Prognosis poor
--- NOTE | 2017-11-27 10:03 | PN ---
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, Physician History of Present Illness: patient seen and examined. Awake. Cachectic. Appetite poor. All consults and follow-ups noted. Chart reviewed. - Current Medication List Current Medications: Active Medications Acetaminophen (Tylenol Suppository -) 650 mg [place] Q4H PRN PRN Reason: FEVER Last Admin: 11/23/17 15:50 Dose: 650 mg Albuterol/Ipratropium (Duoneb -) 1 amp NEB RQID [facility] Last Admin: 11/27/17 07:35 Dose: 1 amp Alprazolam (Xanax -) 0.25 mg PO Q8H PRN PRN Reason: ANXIETY Last Admin: 11/26/17 21:39 Dose: 0.25 mg Amino Acids (Prosource No Carb Liquid Pkt) 30 ml PO BIDWM [facility] Last Admin: 11/26/17 17:03 Dose: 30 ml Bacitracin (Bacitracin -) 1 applic TP BID [facility] Last Admin: 11/26/17 21:39 Dose: 1 applic Piperacillin Sod/Tazobactam (Sod 3.375 gm/ Dextrose) 50 mls @ 100 mls/hr IVPB Q8H-IV [facility] PRN Reason: Protocol Last Admin: 11/27/17 02:26 Dose: 100 mls/hr Vancomycin HCl 1,000 mg/ (Dextrose) 250 mls @ 166.667 mls/hr IVPB DAILY@1700 [facility] Last Admin: 11/26/17 17:03 Dose: 166.667 mls/hr Potassium Chloride/Dextrose/Sod Cl (D5-1/2ns+20 Meq Kcl -) 20 meq in 1,000 mls @ 75 mls/hr IV ASDIR [facility] Last Admin: 11/26/17 21:38 Dose: Not Given Multivitamins/Minerals/Vitamin C (Tab-A-Vit -) 1 tab PO DAILY [facility] Last Admin: 11/26/17 10:28 Dose: 1 tab Ranitidine HCl (Zantac -) 150 mg PO BID [facility] Last Admin: 11/26/17 21:39 Dose: 150 mg - Objective Vital Signs: Vital Signs Temperature 99.2 F 11/27/17 06:35 Pulse Rate 84 11/27/17 06:35 Respiratory Rate 20 11/27/17 06:35 Blood Pressure 98/70 11/27/17 06:35 O2 Sat by Pulse Oximetry (%) 96 11/26/17 21:00 Constitutional: Yes: Cachectic Neck: Yes: Supple Cardiovascular: Yes: Regular Rate and Rhythm Respiratory: Yes: Diminished Gastrointestinal: Yes: Soft Edema: No Neurological: Yes: Other (awake) Labs: CBC, BMP 11/26/17 06:48 11/26/17 06:48 INR, PTT INR 1.34 (0.82-1.09) H 11/20/17 15:07 Problem List - Problems (1) Anemia Code(s): D64.9 - ANEMIA, UNSPECIFIED Qualifiers: Anemia type: other cause Other causes of anemia: other cause, not classified Qualified Code(s): D64.89 - Other specified anemias (2) Dehydration Code(s): E86.0 - DEHYDRATION (3) Elevated lactic acid level Code(s): R79.89 - OTHER SPECIFIED ABNORMAL FINDINGS OF BLOOD CHEMISTRY (4) Lung mass Code(s): R91.8 - OTHER NONSPECIFIC ABNORMAL FINDING OF LUNG FIELD Assessment/Plan MRSA bacteremia UTI lung mass--likely malignant Possible post-obstructive pneumonia continue present care and antibiotics Fluids Prognosis poor MRSA precautions Patient is DNR/DNI. We will follow
[2017-11-27] MEDS: ALPRAZolam 0.25 MG TABLET PO PRN (10:11)
[2017-11-27] MEDS: RANITIDINE HCL 150 MG TABLET (FP) PO SCH ×2 (10:11→21:46)
[2017-11-27] MEDS: MULTIVITAMINS (DAILY MVI) TABLET (FP) PO SCH (10:11)
[2017-11-27] MEDS: BACITRACIN 15 GM TUBE TOPICAL OINTMENT TP SCH ×2 (10:11→22:51)
[2017-11-27] MEDS: AMINO ACIDS/PROTEIN HYDROLYS 30 ML LIQUID.PKT PO SCH ×2 (10:12→17:52)
--- NOTE | 2017-11-27 10:47 | PN ---
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 (short form) - Note 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: Awake in NAD. No acute events documented overnight. Intake & Output 11/24/17 11/25/17 11/26/17 11/27/17 22:59 22:59 23:59 23:59 Intake Total 600 Output Total 500 Balance 100 Last Vital Signs Temp Pulse Resp BP Pulse Ox 99.2 F 84 20 98/70 96 11/27/17 06:35 11/27/17 06:35 11/27/17 06:35 11/27/17 06:35 11/26/17 21:00 Active Medications Acetaminophen (Tylenol Suppository -) 650 mg [place] Q4H PRN PRN Reason: FEVER Last Admin: 11/23/17 15:50 Dose: 650 mg Albuterol/Ipratropium (Duoneb -) 1 amp NEB RQID [facility] Last Admin: 11/27/17 07:35 Dose: 1 amp Alprazolam (Xanax -) 0.25 mg PO Q8H PRN PRN Reason: ANXIETY Last Admin: 11/27/17 10:11 Dose: 0.25 mg Amino Acids (Prosource No Carb Liquid Pkt) 30 ml PO BIDWM [facility] Last Admin: 11/27/17 10:12 Dose: 30 ml Bacitracin (Bacitracin -) 1 applic TP BID [facility] Last Admin: 11/27/17 10:11 Dose: 1 applic Piperacillin Sod/Tazobactam (Sod 3.375 gm/ Dextrose) 50 mls @ 100 mls/hr IVPB Q8H-IV [facility] PRN Reason: Protocol Last Admin: 11/27/17 10:11 Dose: 100 mls/hr Vancomycin HCl 1,000 mg/ (Dextrose) 250 mls @ 166.667 mls/hr IVPB DAILY@1700 [facility] Last Admin: 11/26/17 17:03 Dose: 166.667 mls/hr Potassium Chloride/Dextrose/Sod Cl (D5-1/2ns+20 Meq Kcl -) 20 meq in 1,000 mls @ 75 mls/hr IV ASDIR [facility] Last Admin: 11/26/17 21:38 Dose: Not Given Multivitamins/Minerals/Vitamin C (Tab-A-Vit -) 1 tab PO DAILY [facility] Last Admin: 11/27/17 10:11 Dose: 1 tab Ranitidine HCl (Zantac -) 150 mg PO BID [facility] Last Admin: 11/27/17 10:11 Dose: 150 mg Constitutional: Yes: NAD, Cachectic Eyes: Yes: WNL HENT: Yes: WNL Neck: Yes: WNL Cardiovascular: Yes: Regular Rate and Rhythm, S1, S2 Respiratory: Yes: Few scattered basilar Rhonchi Gastrointestinal: Yes: Normal Bowel Sounds, Soft Extremities: Yes: WNL Edema: No Labs: Laboratory Results - last 24 hr 11/26/17 16:15 Vancomycin Pre-Dose 10.537 H Problem List - Problems (1) Anemia Code(s): D64.9 - ANEMIA, UNSPECIFIED Qualifiers: Anemia type: other cause Other causes of anemia: other cause, not classified Qualified Code(s): D64.89 - Other specified anemias (2) Dehydration Code(s): E86.0 - DEHYDRATION (3) Elevated lactic acid level Code(s): R79.89 - OTHER SPECIFIED ABNORMAL FINDINGS OF BLOOD CHEMISTRY (4) Lung mass Code(s): R91.8 - OTHER NONSPECIFIC ABNORMAL FINDING OF LUNG FIELD (5) Schizophrenia Code(s): F20.9 - SCHIZOPHRENIA, UNSPECIFIED Assessment/Plan LLL Lung Mass likely malignant Failure to Thrive Schizophrenia Depression Fever UTI + ECOLI HYPERNATREMIA Lung mass suspicious for malignancy but patient with very poor functional status and appears very malnourished, likely would not be a candidate for treatment even if he was diagnosed with a malignancy Would defer invasive diagnostic procedures at this time VTE prophylaxis ABX per ID BD TX IVF DNR/DNI Dr Aguirre
--- NOTE | 2017-11-27 12:32 | PN ---
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: Selected Entries 11/23/17 11/23/17 11/23/17 02:00 06:00 11:07 Breakfast Lunch Supper Temperature 100 F H 100.1 F H 100.1 F H 11/23/17 11/23/17 11/23/17 11:20 12:00 14:48 Breakfast 25% Lunch Supper Temperature 102.4 F H 102.6 F H 11/23/17 11/23/17 11/23/17 15:11 15:48 17:55 Breakfast Lunch 0 Supper Temperature 101.4 F H 99.7 F H 11/23/17 11/23/17 11/24/17 19:25 19:28 02:00 Breakfast Lunch Supper 0 Temperature 100.0 F H 99.8 F H 11/24/17 11/24/17 11/24/17 06:00 11:20 11:40 Breakfast 0 Lunch Supper Temperature 98.8 F 99.8 F H Laboratory Tests 11/21/17 08:05 WBC 9.5 Selected Entries 11/25/17 11/25/17 11/25/17 06:00 09:00 11:32 Breakfast 0 Temperature 98.8 F 99.2 F 11/25/17 11/25/17 11/25/17 15:23 18:00 20:18 Breakfast Temperature 99.2 F 99.8 F H 99.9 F H 11/26/17 11/26/17 11/26/17 06:00 09:33 10:53 Breakfast 0 Temperature 98.3 F 99.8 F H 11/26/17 11/26/17 11/27/17 15:26 16:10 06:35 Breakfast 0 Temperature 99.8 F H 98.1 F 99.2 F On puree/nectar thickened liquids, Pt accepted a little today, maybe 25% today per nursing. . Pt is DNR/DNI. Pt's with poor potential for functional improvement? PEG vs Consider comfort care/hospice/allow water? f/u by Palliative care regarding pt's end of life wishes.
[2017-11-27] MEDS: VANCOMYCIN 1,000 MG in DEXTROSE 5%-WATER - 250 ML IVPB SCH (17:53)
[2017-11-27] MEDS: D5-1/2NS+20 MEQ KCL - 20 MEQ/1,000 ML INFUS.BAG IV SCH (21:48)
[2017-11-28] MEDS: PIPERACILLIN/TAZOB 3.375 GM 3.375 GM in DEXTROSE 5%-WATER - 50 ML IVPB SCH ×3 (02:25→18:03)
[2017-11-28] MEDS: D5-1/2NS+20 MEQ KCL - 20 MEQ/1,000 ML INFUS.BAG IV SCH ×2 (02:59→18:06)
[2017-11-28] MEDS: ALBUTEROL SO4 2.5/IPRATROPIUM 0.5 INH SOL 3 ML VIAL.NEB. NEB SCH ×2 (07:25→11:14)
--- NOTE | 2017-11-28 10:28 | PN ---
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, Physician Chief Complaint: awake no distress occasional cough appetite poor - Current Medication List Current Medications: Active Medications Acetaminophen (Tylenol Suppository -) 650 mg [place] Q4H PRN PRN Reason: FEVER Last Admin: 11/23/17 15:50 Dose: 650 mg Albuterol/Ipratropium (Duoneb -) 1 amp NEB RQID [facility] Last Admin: 11/28/17 07:25 Dose: 1 amp Alprazolam (Xanax -) 0.25 mg PO Q8H PRN PRN Reason: ANXIETY Last Admin: 11/27/17 10:11 Dose: 0.25 mg Amino Acids (Prosource No Carb Liquid Pkt) 30 ml PO BIDWM [facility] Last Admin: 11/27/17 17:52 Dose: 30 ml Bacitracin (Bacitracin -) 1 applic TP BID [facility] Last Admin: 11/27/17 22:51 Dose: 1 applic Piperacillin Sod/Tazobactam (Sod 3.375 gm/ Dextrose) 50 mls @ 100 mls/hr IVPB Q8H-IV [facility] PRN Reason: Protocol Last Admin: 11/28/17 02:25 Dose: 100 mls/hr Vancomycin HCl 1,000 mg/ (Dextrose) 250 mls @ 166.667 mls/hr IVPB DAILY@1700 [facility] Last Admin: 11/27/17 17:53 Dose: 166.667 mls/hr Potassium Chloride/Dextrose/Sod Cl (D5-1/2ns+20 Meq Kcl -) 20 meq in 1,000 mls @ 75 mls/hr IV ASDIR [facility] Last Admin: 11/28/17 02:59 Dose: 75 mls/hr Multivitamins/Minerals/Vitamin C (Tab-A-Vit -) 1 tab PO DAILY [facility] Last Admin: 11/27/17 10:11 Dose: 1 tab Ranitidine HCl (Zantac -) 150 mg PO BID [facility] Last Admin: 11/27/17 21:46 Dose: 150 mg - Objective Vital Signs: Vital Signs Temperature 97.6 F 11/28/17 06:48 Pulse Rate 80 11/28/17 06:48 Respiratory Rate 20 11/28/17 06:48 Blood Pressure 108/68 11/28/17 06:48 O2 Sat by Pulse Oximetry (%) 96 11/27/17 11:06 Constitutional: Yes: No Distress Cardiovascular: Yes: Regular Rate and Rhythm Respiratory: Yes: Diminished, Rhonchi Gastrointestinal: Yes: Normal Bowel Sounds, Soft. No: Tenderness Edema: No Labs: CBC, BMP 11/26/17 06:48 11/26/17 06:48 INR, PTT INR 1.34 (0.82-1.09) H 11/20/17 15:07 Problem List - Problems (1) Anemia Code(s): D64.9 - ANEMIA, UNSPECIFIED Qualifiers: Anemia type: other cause Other causes of anemia: other cause, not classified Qualified Code(s): D64.89 - Other specified anemias (2) Dehydration Code(s): E86.0 - DEHYDRATION (3) Elevated lactic acid level Code(s): R79.89 - OTHER SPECIFIED ABNORMAL FINDINGS OF BLOOD CHEMISTRY (4) Lung mass Code(s): R91.8 - OTHER NONSPECIFIC ABNORMAL FINDING OF LUNG FIELD (5) Uremia Code(s): N19 - UNSPECIFIED KIDNEY FAILURE (6) UTI (urinary tract infection) Code(s): N39.0 - URINARY TRACT INFECTION, SITE NOT SPECIFIED Qualifiers: Urinary tract infection type: site unspecified Hematuria presence: with hematuria Qualified Code(s): N39.0 - Urinary tract infection, site not specified; R31.9 - Hematuria, unspecified; R31.9 - Hematuria, unspecified (7) Sepsis Code(s): A41.9 - SEPSIS, UNSPECIFIED ORGANISM (8) Malnutrition Code(s): E46 - UNSPECIFIED PROTEIN-CALORIE MALNUTRITION Qualifiers: Protein-calorie malnutrition severity: severe (9) Pneumonia Code(s): J18.9 - PNEUMONIA, UNSPECIFIED ORGANISM (10) MRSA bacteremia Code(s): R78.81 - BACTEREMIA Assessment/Plan PLAN iv antibiotics Blood cultures -- MRSA repeat are negative on IV vanco continue with iv fluids has poor po intake will call palliative care nebs Pt is DNR/DNI
[2017-11-28] MEDS: ALPRAZolam 0.25 MG TABLET PO PRN (11:11)
[2017-11-28] MEDS: RANITIDINE HCL 150 MG TABLET (FP) PO SCH ×2 (11:11→21:34)
[2017-11-28] MEDS: AMINO ACIDS/PROTEIN HYDROLYS 30 ML LIQUID.PKT PO SCH ×2 (11:11→18:03)
[2017-11-28] MEDS: MULTIVITAMINS (DAILY MVI) TABLET (FP) PO SCH (11:11)
[2017-11-28] MEDS: BACITRACIN 15 GM TUBE TOPICAL OINTMENT TP SCH ×2 (11:12→21:37)
--- NOTE | 2017-11-28 11:38 | PN ---
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 (short form) - Note 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: Awake in NAD. Some dry cough. No acute events documented overnight. Intake & Output 11/25/17 11/26/17 11/27/17 11/28/17 22:59 23:59 23:59 23:59 Intake Total 1900 900 Output Total 1500 500 Balance 400 400 Last Vital Signs Temp Pulse Resp BP Pulse Ox 97.6 F 80 20 108/68 96 11/28/17 06:48 11/28/17 06:48 11/28/17 06:48 11/28/17 06:48 11/27/17 11:06 Active Medications Acetaminophen (Tylenol Suppository -) 650 mg [place] Q4H PRN PRN Reason: FEVER Last Admin: 11/23/17 15:50 Dose: 650 mg Albuterol/Ipratropium (Duoneb -) 1 amp NEB RQID [facility] Last Admin: 11/28/17 11:14 Dose: Not Given Alprazolam (Xanax -) 0.25 mg PO Q8H PRN PRN Reason: ANXIETY Last Admin: 11/28/17 11:11 Dose: 0.25 mg Amino Acids (Prosource No Carb Liquid Pkt) 30 ml PO BIDWM [facility] Last Admin: 11/28/17 11:11 Dose: Not Given Bacitracin (Bacitracin -) 1 applic TP BID [facility] Last Admin: 11/28/17 11:12 Dose: 1 applic Piperacillin Sod/Tazobactam (Sod 3.375 gm/ Dextrose) 50 mls @ 100 mls/hr IVPB Q8H-IV [facility] PRN Reason: Protocol Last Admin: 11/28/17 11:11 Dose: 100 mls/hr Vancomycin HCl 1,000 mg/ (Dextrose) 250 mls @ 166.667 mls/hr IVPB DAILY@1700 [facility] Last Admin: 11/27/17 17:53 Dose: 166.667 mls/hr Potassium Chloride/Dextrose/Sod Cl (D5-1/2ns+20 Meq Kcl -) 20 meq in 1,000 mls @ 75 mls/hr IV ASDIR [facility] Last Admin: 11/28/17 02:59 Dose: 75 mls/hr Multivitamins/Minerals/Vitamin C (Tab-A-Vit -) 1 tab PO DAILY [facility] Last Admin: 11/28/17 11:11 Dose: 1 tab Ranitidine HCl (Zantac -) 150 mg PO BID [facility] Last Admin: 11/28/17 11:11 Dose: 150 mg Constitutional: Yes: NAD, Cachectic Eyes: Yes: WNL HENT: Yes: WNL Neck: Yes: WNL Cardiovascular: Yes: Regular Rate and Rhythm, S1, S2 Respiratory: Yes: Few scattered basilar Rhonchi Gastrointestinal: Yes: Normal Bowel Sounds, Soft Extremities: Yes: WNL Edema: No Labs: Problem List - Problems (1) Anemia Code(s): D64.9 - ANEMIA, UNSPECIFIED Qualifiers: Anemia type: other cause Other causes of anemia: other cause, not classified Qualified Code(s): D64.89 - Other specified anemias (2) Dehydration Code(s): E86.0 - DEHYDRATION (3) Elevated lactic acid level Code(s): R79.89 - OTHER SPECIFIED ABNORMAL FINDINGS OF BLOOD CHEMISTRY (4) Lung mass Code(s): R91.8 - OTHER NONSPECIFIC ABNORMAL FINDING OF LUNG FIELD (5) Schizophrenia Code(s): F20.9 - SCHIZOPHRENIA, UNSPECIFIED Assessment/Plan LLL Lung Mass likely malignant Failure to Thrive Schizophrenia Depression Fever UTI + ECOLI HYPERNATREMIA Lung mass suspicious for malignancy but patient with very poor functional status and appears very malnourished, likely would not be a candidate for treatment even if he was diagnosed with a malignancy Would defer invasive diagnostic procedures at this time VTE prophylaxis ABX per ID BD TX IVF DNR/DNI Dr Aguirre
--- NOTE | 2017-11-28 14:01 | PN ---
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: Selected Entries 11/23/17 11/23/17 11/23/17 02:00 06:00 11:07 Breakfast Lunch Supper Temperature 100 F H 100.1 F H 100.1 F H 11/23/17 11/23/17 11/23/17 11:20 12:00 14:48 Breakfast 25% Lunch Supper Temperature 102.4 F H 102.6 F H 11/23/17 11/23/17 11/23/17 15:11 15:48 17:55 Breakfast Lunch 0 Supper Temperature 101.4 F H 99.7 F H 11/23/17 11/23/17 11/24/17 19:25 19:28 02:00 Breakfast Lunch Supper 0 Temperature 100.0 F H 99.8 F H 11/24/17 11/24/17 11/24/17 06:00 11:20 11:40 Breakfast 0 Lunch Supper Temperature 98.8 F 99.8 F H Laboratory Tests 11/21/17 08:05 WBC 9.5 Selected Entries 11/25/17 11/25/17 11/25/17 06:00 09:00 11:32 Breakfast 0 Temperature 98.8 F 99.2 F 11/25/17 11/25/17 11/25/17 15:23 18:00 20:18 Breakfast Temperature 99.2 F 99.8 F H 99.9 F H 11/26/17 11/26/17 11/26/17 06:00 09:33 10:53 Breakfast 0 Temperature 98.3 F 99.8 F H 11/26/17 11/26/17 11/27/17 15:26 16:10 06:35 Breakfast 0 Temperature 99.8 F H 98.1 F 99.2 F Selected Entries 11/27/17 11/27/17 11/27/17 06:35 10:00 12:13 Breakfast 50% Lunch Temperature 99.2 F 97.8 F 11/27/17 11/27/17 11/28/17 14:43 17:06 06:48 Breakfast Lunch 0 Temperature 98.0 F 98.2 F 97.6 F 11/28/17 10:00 Breakfast Lunch Temperature 97.6 F On puree/nectar thickened liquids, Poor PO intake. . Pt is DNR/DNI. Pt's with poor potential for functional improvement? PEG vs Consider comfort care/hospice/allow water f/u by Palliative care regarding pt's end of life wishes.
--- NOTE | 2017-11-28 14:05 | PN ---
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, Physician History of Present Illness: Awake, more alert. asking for water Chronically ill appearing. Cachectic Denies pain Breathing non-labored Temps down Afebrile Repeat BC no growth - Current Medication List Current Medications: Active Medications Acetaminophen (Tylenol Suppository -) 650 mg [place] Q4H PRN PRN Reason: FEVER Last Admin: 11/23/17 15:50 Dose: 650 mg Albuterol/Ipratropium (Duoneb -) 1 amp NEB RQID [facility] Last Admin: 11/28/17 11:14 Dose: Not Given Amino Acids (Prosource No Carb Liquid Pkt) 30 ml PO BIDWM [facility] Last Admin: 11/28/17 11:11 Dose: Not Given Bacitracin (Bacitracin -) 1 applic TP BID [facility] Last Admin: 11/28/17 11:12 Dose: 1 applic Piperacillin Sod/Tazobactam (Sod 3.375 gm/ Dextrose) 50 mls @ 100 mls/hr IVPB Q8H-IV [facility] PRN Reason: Protocol Last Admin: 11/28/17 11:11 Dose: 100 mls/hr Vancomycin HCl 1,000 mg/ (Dextrose) 250 mls @ 166.667 mls/hr IVPB DAILY@1700 [facility] Last Admin: 11/27/17 17:53 Dose: 166.667 mls/hr Potassium Chloride/Dextrose/Sod Cl (D5-1/2ns+20 Meq Kcl -) 20 meq in 1,000 mls @ 75 mls/hr IV ASDIR [facility] Last Admin: 11/28/17 02:59 Dose: 75 mls/hr Multivitamins/Minerals/Vitamin C (Tab-A-Vit -) 1 tab PO DAILY [facility] Last Admin: 11/28/17 11:11 Dose: 1 tab Ranitidine HCl (Zantac -) 150 mg PO BID [facility] Last Admin: 11/28/17 11:11 Dose: 150 mg - Objective Vital Signs: Vital Signs Temperature 97.6 F 11/28/17 10:00 Pulse Rate 96 H 11/28/17 10:00 Respiratory Rate 18 11/28/17 10:00 Blood Pressure 108/60 11/28/17 10:00 O2 Sat by Pulse Oximetry (%) 95 11/28/17 09:00 Constitutional: Yes: No Distress Eyes: Yes: Conjunctiva Clear Cardiovascular: Yes: Regular Rate and Rhythm, S1, S2 Respiratory: Yes: Diminished Gastrointestinal: Yes: Normal Bowel Sounds, Soft. No: Tenderness Labs: CBC, BMP 11/26/17 06:48 11/26/17 06:48 INR, PTT INR 1.34 (0.82-1.09) H 11/20/17 15:07 Assessment/Plan MRSA bacteremia UTI Probable lung malignancy Possible post-obstructive pneumonia Cachexia Azotemia Continue vancomycin/ zosyn for treatment of MRSA bacteremia ,UTI , possible post-obstructive pneumonia Check repeat BC Prognosis poor
[2017-11-28] MEDS ORDERED: PT OWN MED DRAWER 7, Y5N ONE ×2 (16:15→17:35)
[2017-11-28] MEDS: VANCOMYCIN 1,000 MG in DEXTROSE 5%-WATER - 250 ML IVPB SCH (18:02)
[2017-11-29] MEDS: PIPERACILLIN/TAZOB 3.375 GM 3.375 GM in DEXTROSE 5%-WATER - 50 ML IVPB SCH ×2 (02:35→10:16)
[2017-11-29 07:55] LABS: ANION GAP 11 (8-16); BLOOD UREA NITROGEN 11 mg/dL (7-18); CALCIUM 7.4 mg/dL (8.5-10.1); CHLORIDE 113 mmol/L (98-107); CO2 23 mmol/L (21-32); CREATININE 0.8 mg/dL (0.7-1.3); GLUCOSE,RANDOM 80 mg/dL (74-106); POTASSIUM 3.7 mmol/L (3.5-5.1); SODIUM 147 mmol/L (136-145)
[2017-11-29] MEDS ORDERED: PT OWN MED DRAWER 7, Y5N ONE ×3 (10:07→20:21)
[2017-11-29] MEDS: AMINO ACIDS/PROTEIN HYDROLYS 30 ML LIQUID.PKT PO SCH ×2 (10:15→17:37)
[2017-11-29] MEDS: D5-1/2NS+20 MEQ KCL - 20 MEQ/1,000 ML INFUS.BAG IV SCH (10:15)
[2017-11-29] MEDS: MULTIVITAMINS (DAILY MVI) TABLET (FP) PO SCH (10:16)
[2017-11-29] MEDS: BACITRACIN 15 GM TUBE TOPICAL OINTMENT TP SCH ×2 (10:16→22:33)
[2017-11-29] MEDS: RANITIDINE HCL 150 MG TABLET (FP) PO SCH ×2 (10:16→22:27)
--- NOTE | 2017-11-29 10:34 | PN ---
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 - Current Medication List Current Medications: Active Medications Acetaminophen (Tylenol Suppository -) 650 mg SD Q4H PRN PRN Reason: FEVER Last Admin: 11/23/17 15:50 Dose: 650 mg Amino Acids (Prosource No Carb Liquid Pkt) 30 ml PO BIDWM [facility] Last Admin: 11/29/17 10:15 Dose: 30 ml Bacitracin (Bacitracin -) 1 applic TP BID [facility] Last Admin: 11/29/17 10:16 Dose: 1 applic Piperacillin Sod/Tazobactam (Sod 3.375 gm/ Dextrose) 50 mls @ 100 mls/hr IVPB Q8H-IV KEO PRN Reason: Protocol Last Admin: 11/29/17 10:16 Dose: 100 mls/hr Vancomycin HCl 1,000 mg/ (Dextrose) 250 mls @ 166.667 mls/hr IVPB DAILY@1700 [facility] Last Admin: 11/28/17 18:02 Dose: 166.667 mls/hr Potassium Chloride/Dextrose/Sod Cl (D5-1/2ns+20 Meq Kcl -) 20 meq in 1,000 mls @ 75 mls/hr IV ASDIR [facility] Last Admin: 11/29/17 10:15 Dose: 75 mls/hr Multivitamins/Minerals/Vitamin C (Tab-A-Vit -) 1 tab PO DAILY [facility] Last Admin: 11/29/17 10:16 Dose: 1 tab Ranitidine HCl (Zantac -) 150 mg PO BID [facility] Last Admin: 11/29/17 10:16 Dose: 150 mg - Objective Vital Signs: Vital Signs Temperature 98.2 F 11/29/17 05:59 Pulse Rate 96 H 11/29/17 05:59 Respiratory Rate 20 11/29/17 05:59 Blood Pressure 125/72 11/29/17 05:59 O2 Sat by Pulse Oximetry (%) 92 L 11/28/17 21:00 Constitutional: Yes: No Distress, Calm, Cachectic Cardiovascular: Yes: Regular Rate and Rhythm Respiratory: Yes: Diminished, Rhonchi Gastrointestinal: Yes: Normal Bowel Sounds, Soft. No: Tenderness Edema: No Labs: CBC, BMP 11/26/17 06:48 11/29/17 06:20 INR, PTT INR 1.34 (0.82-1.09) H 11/20/17 15:07 Problem List - Problems (1) Anemia Code(s): D64.9 - ANEMIA, UNSPECIFIED Qualifiers: Anemia type: other cause Other causes of anemia: other cause, not classified Qualified Code(s): D64.89 - Other specified anemias (2) Dehydration Code(s): E86.0 - DEHYDRATION (3) Elevated lactic acid level Code(s): R79.89 - OTHER SPECIFIED ABNORMAL FINDINGS OF BLOOD CHEMISTRY (4) Lung mass Code(s): R91.8 - OTHER NONSPECIFIC ABNORMAL FINDING OF LUNG FIELD (5) Uremia Code(s): N19 - UNSPECIFIED KIDNEY FAILURE (6) UTI (urinary tract infection) Code(s): N39.0 - URINARY TRACT INFECTION, SITE NOT SPECIFIED Qualifiers: Urinary tract infection type: site unspecified Hematuria presence: with hematuria Qualified Code(s): N39.0 - Urinary tract infection, site not specified; R31.9 - Hematuria, unspecified; R31.9 - Hematuria, unspecified (7) Sepsis Code(s): A41.9 - SEPSIS, UNSPECIFIED ORGANISM (8) Malnutrition Code(s): E46 - UNSPECIFIED PROTEIN-CALORIE MALNUTRITION Qualifiers: Protein-calorie malnutrition severity: severe (9) Pneumonia Code(s): J18.9 - PNEUMONIA, UNSPECIFIED ORGANISM (10) MRSA bacteremia Code(s): R78.81 - BACTEREMIA Assessment/Plan PLAN iv antibiotics Blood cultures -- MRSA repeat are negative on IV vanco Echo results noted continue with iv fluids improving po intake will need to know duration of antibiotics nebs Pt is DNR/DNI
--- NOTE | 2017-11-29 12:09 | PN ---
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, Physician History of Present Illness: Awake, more alert. Chronically ill appearing. Cachectic Denies pain Breathing non-labored Temps down Afebrile Repeat BC no growth - Current Medication List Current Medications: Active Medications Acetaminophen (Tylenol Suppository -) 650 mg [place] Q4H PRN PRN Reason: FEVER Last Admin: 11/23/17 15:50 Dose: 650 mg Amino Acids (Prosource No Carb Liquid Pkt) 30 ml PO BIDWM [facility] Last Admin: 11/29/17 10:15 Dose: 30 ml Bacitracin (Bacitracin -) 1 applic TP BID [facility] Last Admin: 11/29/17 10:16 Dose: 1 applic Piperacillin Sod/Tazobactam (Sod 3.375 gm/ Dextrose) 50 mls @ 100 mls/hr IVPB Q8H-IV KEO PRN Reason: Protocol Last Admin: 11/29/17 10:16 Dose: 100 mls/hr Vancomycin HCl 1,000 mg/ (Dextrose) 250 mls @ 166.667 mls/hr IVPB DAILY@1700 [facility] Last Admin: 11/28/17 18:02 Dose: 166.667 mls/hr Potassium Chloride/Dextrose/Sod Cl (D5-1/2ns+20 Meq Kcl -) 20 meq in 1,000 mls @ 75 mls/hr IV ASDIR [facility] Last Admin: 11/29/17 10:15 Dose: 75 mls/hr Multivitamins/Minerals/Vitamin C (Tab-A-Vit -) 1 tab PO DAILY [facility] Last Admin: 11/29/17 10:16 Dose: 1 tab Ranitidine HCl (Zantac -) 150 mg PO BID [facility] Last Admin: 11/29/17 10:16 Dose: 150 mg - Objective Vital Signs: Vital Signs Temperature 98.1 F 11/29/17 11:06 Pulse Rate 90 11/29/17 11:06 Respiratory Rate 19 11/29/17 11:06 Blood Pressure 92/60 11/29/17 11:06 O2 Sat by Pulse Oximetry (%) 95 11/29/17 09:00 Constitutional: Yes: No Distress, Cachectic Cardiovascular: Yes: Regular Rate and Rhythm, S1, S2 Respiratory: Yes: Diminished Gastrointestinal: Yes: Normal Bowel Sounds, Soft. No: Tenderness Edema: No Labs: CBC, BMP 11/26/17 06:48 11/29/17 06:20 INR, PTT INR 1.34 (0.82-1.09) H 11/20/17 15:07 Assessment/Plan MRSA bacteremia UTI Probable lung malignancy Possible post-obstructive pneumonia Cachexia Azotemia D/C zosyn Will need additional 3week course of vancomycin for MRSA bacteremia unless family wants otherwise. ? Comfort care
--- NOTE | 2017-11-29 13:55 | FALL ---
Fall Exam - Event Witnessed fall: No Location of Fall: Patient Room Fall from: Bed - Pre-Fall Fall Risk: High Risk Mental Status: Alert Current Medications: Current Medications Generic Name Dose Route Start Last Admin Trade Name Freq PRN Reason Stop Dose Admin Acetaminophen 650 mg 11/22/17 12:15 11/23/17 15:50 Tylenol Suppository - IL 650 mg Q4H PRN Administration FEVER Amino Acids 30 ml 11/25/17 17:30 11/29/17 10:15 Prosource No Carb Liquid Pkt PO 30 ml BIDWM KEO Administration Bacitracin 1 applic 11/20/17 22:00 11/29/17 10:16 Bacitracin - TP 1 applic BID KEO Administration Vancomycin HCl 1,000 mg/ 250 mls @ 166.667 mls/hr 11/24/17 17:00 11/28/17 18: 02 Dextrose IVPB 166.667 mls/hr DAILY@1700 KEO Administration Potassium Chloride/Dextrose/Sod Cl 20 meq in 1,000 mls @ 75 mls/hr 11/25/17 22 :00 11/29/17 10:15 D5-1/2ns+20 Meq Kcl - IV 75 mls/hr ASDIR KEO Administration Multivitamins/Minerals/Vitamin C 1 tab 11/21/17 10:00 11/29/17 10:16 Tab-A-Vit - PO 1 tab DAILY KEO Administration Ranitidine HCl 150 mg 11/20/17 22:00 11/29/17 10:16 Zantac - PO 150 mg BID KEO Administration - Post-Fall Patient Outcome: Laceration Exam Findings: Patient confused at baseline. 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 Patient uncooperative, therefore Neuological exam is limted. Patient spontaneously moves all 4 limbs, Is awake and alert. CN 2-10 intact. Patient sustained a laceration to the right forehead approx. 3 cm in length. Treatment: Ice Pack, Dressing Vital Signs: Vital Signs Temperature 98.4 F 11/29/17 12:38 Pulse Rate 100 H 11/29/17 12:38 Respiratory Rate 19 11/29/17 12:38 Blood Pressure 131/93 11/29/17 12:38 O2 Sat by Pulse Oximetry (%) 95 11/29/17 09:00 LOC Post-Fall: Unchanged Identify factors for HIGH RISK for Head Injury: Known to have hit head
--- NOTE | 2017-11-29 14:57 | PN ---
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, Physician History of Present Illness: pulmonary awake,comfortable,nad - Current Medication List Current Medications: Active Medications Acetaminophen (Tylenol Suppository -) 650 mg [place] Q4H PRN PRN Reason: FEVER Last Admin: 11/23/17 15:50 Dose: 650 mg Amino Acids (Prosource No Carb Liquid Pkt) 30 ml PO BIDWM [facility] Last Admin: 11/29/17 10:15 Dose: 30 ml Bacitracin (Bacitracin -) 1 applic TP BID [facility] Last Admin: 11/29/17 10:16 Dose: 1 applic Vancomycin HCl 1,000 mg/ (Dextrose) 250 mls @ 166.667 mls/hr IVPB DAILY@1700 [facility] Last Admin: 11/28/17 18:02 Dose: 166.667 mls/hr Potassium Chloride/Dextrose/Sod Cl (D5-1/2ns+20 Meq Kcl -) 20 meq in 1,000 mls @ 75 mls/hr IV ASDIR [facility] Last Admin: 11/29/17 10:15 Dose: 75 mls/hr Multivitamins/Minerals/Vitamin C (Tab-A-Vit -) 1 tab PO DAILY [facility] Last Admin: 11/29/17 10:16 Dose: 1 tab Ranitidine HCl (Zantac -) 150 mg PO BID [facility] Last Admin: 11/29/17 10:16 Dose: 150 mg - Objective Vital Signs: Vital Signs Temperature 98.4 F 11/29/17 12:38 Pulse Rate 100 H 11/29/17 12:38 Respiratory Rate 19 11/29/17 12:38 Blood Pressure 131/93 11/29/17 12:38 O2 Sat by Pulse Oximetry (%) 95 11/29/17 09:00 Constitutional: Yes: Calm, Cachectic Eyes: Yes: WNL HENT: Yes: WNL Neck: Yes: WNL Cardiovascular: Yes: Regular Rate and Rhythm, S1, S2 Respiratory: Yes: Rhonchi (ffew scattered christopher rhonchi) Gastrointestinal: Yes: Normal Bowel Sounds, Soft Extremities: Yes: WNL Edema: No Labs: CBC, BMP 11/26/17 06:48 11/29/17 06:20 INR, PTT INR 1.34 (0.82-1.09) H 11/20/17 15:07 Problem List - Problems (1) Anemia Code(s): D64.9 - ANEMIA, UNSPECIFIED Qualifiers: Anemia type: other cause Other causes of anemia: other cause, not classified Qualified Code(s): D64.89 - Other specified anemias (2) Dehydration Code(s): E86.0 - DEHYDRATION (3) Elevated lactic acid level Code(s): R79.89 - OTHER SPECIFIED ABNORMAL FINDINGS OF BLOOD CHEMISTRY (4) Lung mass Code(s): R91.8 - OTHER NONSPECIFIC ABNORMAL FINDING OF LUNG FIELD (5) Schizophrenia Code(s): F20.9 - SCHIZOPHRENIA, UNSPECIFIED Assessment/Plan Assessment/Plan LLL Lung Mass likely malignant Failure to Thrive Schizophrenia Depression Fever UTI + ECOLI HYPERNATREMIA - lung mass likely malignant but pt with poor functional status and appears very malnourished, likely would not be a candidate for treatment even if he was diagnosed with a malignancy - would defer invasive diagnostic procedures at this time - DVT prophylaxis - abx -inhaled bronchodilators - chest x-ray DR DILLON
--- NOTE | 2017-11-29 16:20 | PN ---
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, BARREL WATERER - Note 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: Selected Entries 11/28/17 11/28/17 11/28/17 06:48 10:00 14:23 Breakfast 50% Lunch 50% Supper Temperature 97.6 F 97.6 F 98.2 F 11/28/17 11/28/17 11/29/17 16:15 18:30 05:59 Breakfast Lunch Supper 25% Temperature 97.7 F 98.2 F 11/29/17 11/29/17 11/29/17 10:07 11:06 12:38 Breakfast 75% Lunch Supper Temperature 98.1 F 98.4 F 11/29/17 11/29/17 13:58 15:37 Breakfast Lunch 25% Supper Temperature 98.4 F Improving PO acceptance with overtly fair tolerance of Puree and nectar thick liquids, Magic cup.
[2017-11-29] MEDS: VANCOMYCIN 1,000 MG in DEXTROSE 5%-WATER - 250 ML IVPB SCH (17:37)
[2017-11-30] MEDS: D5-1/2NS+20 MEQ KCL - 20 MEQ/1,000 ML INFUS.BAG IV SCH ×2 (09:20→09:21)
[2017-11-30] MEDS: AMINO ACIDS/PROTEIN HYDROLYS 30 ML LIQUID.PKT PO SCH ×2 (09:23→18:49)
[2017-11-30] MEDS: MULTIVITAMINS (DAILY MVI) TABLET (FP) PO SCH (09:24)
[2017-11-30] MEDS: RANITIDINE HCL 150 MG TABLET (FP) PO SCH ×2 (09:24→22:00)
--- NOTE | 2017-11-30 10:44 | PN ---
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, Physician Chief Complaint: awake no distress occasional cough sitting out in hallway s/p fall yesterday-- forehead injury-- CT head x 2 -- no acute pathology - Current Medication List Current Medications: Active Medications Acetaminophen (Tylenol Suppository -) 650 mg [place] Q4H PRN PRN Reason: FEVER Last Admin: 11/23/17 15:50 Dose: 650 mg Amino Acids (Prosource No Carb Liquid Pkt) 30 ml PO BIDWM [facility] Last Admin: 11/30/17 09:23 Dose: Not Given Bacitracin (Bacitracin -) 1 applic TP BID [facility] Last Admin: 11/29/17 22:33 Dose: 1 applic Vancomycin HCl 1,000 mg/ (Dextrose) 250 mls @ 166.667 mls/hr IVPB DAILY@1700 [facility] Last Admin: 11/29/17 17:37 Dose: 166.667 mls/hr Potassium Chloride/Dextrose/Sod Cl (D5-1/2ns+20 Meq Kcl -) 20 meq in 1,000 mls @ 75 mls/hr IV ASDIR [facility] Last Admin: 11/30/17 09:21 Dose: 75 mls/hr Multivitamins/Minerals/Vitamin C (Tab-A-Vit -) 1 tab PO DAILY [facility] Last Admin: 11/30/17 09:24 Dose: Not Given Ranitidine HCl (Zantac -) 150 mg PO BID [facility] Last Admin: 11/30/17 09:24 Dose: Not Given - Objective Vital Signs: Vital Signs Temperature 98.8 F 11/30/17 06:21 Pulse Rate 124 H 11/30/17 06:21 Respiratory Rate 20 11/30/17 06:21 Blood Pressure 143/64 11/30/17 06:21 O2 Sat by Pulse Oximetry (%) 95 11/29/17 09:00 Constitutional: Yes: No Distress, Cachectic Cardiovascular: Yes: Regular Rate and Rhythm Respiratory: Yes: Diminished, Rhonchi Gastrointestinal: Yes: Normal Bowel Sounds, Soft. No: Tenderness Edema: No Labs: CBC, BMP 11/26/17 06:48 11/29/17 06:20 INR, PTT INR 1.34 (0.82-1.09) H 11/20/17 15:07 Problem List - Problems (1) Anemia Code(s): D64.9 - ANEMIA, UNSPECIFIED Qualifiers: Anemia type: other cause Other causes of anemia: other cause, not classified Qualified Code(s): D64.89 - Other specified anemias (2) Dehydration Code(s): E86.0 - DEHYDRATION (3) Elevated lactic acid level Code(s): R79.89 - OTHER SPECIFIED ABNORMAL FINDINGS OF BLOOD CHEMISTRY (4) Lung mass Code(s): R91.8 - OTHER NONSPECIFIC ABNORMAL FINDING OF LUNG FIELD (5) Uremia Code(s): N19 - UNSPECIFIED KIDNEY FAILURE (6) UTI (urinary tract infection) Code(s): N39.0 - URINARY TRACT INFECTION, SITE NOT SPECIFIED Qualifiers: Urinary tract infection type: site unspecified Hematuria presence: with hematuria Qualified Code(s): N39.0 - Urinary tract infection, site not specified; R31.9 - Hematuria, unspecified; R31.9 - Hematuria, unspecified (7) Sepsis Code(s): A41.9 - SEPSIS, UNSPECIFIED ORGANISM (8) Malnutrition Code(s): E46 - UNSPECIFIED PROTEIN-CALORIE MALNUTRITION Qualifiers: Protein-calorie malnutrition severity: severe (9) Pneumonia Code(s): J18.9 - PNEUMONIA, UNSPECIFIED ORGANISM (10) MRSA bacteremia Code(s): R78.81 - BACTEREMIA Assessment/Plan PLAN iv antibiotics Blood cultures -- MRSA repeat are negative on IV vanco x 3 weeks more per ID Left a message with legal guardian - Faiza Lazo for picc line Echo results noted continue with iv fluids improving po intake Ativan as needed for agitation nebs Pt is DNR/DNI
--- NOTE | 2017-11-30 10:56 | PN ---
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 (short form) - Note 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: Awake in NAD. Some dry cough. S/P Fall. CT head: no acute pathology. CXR: some mild increase in atelectasis. Intake & Output 11/27/17 11/28/17 11/29/17 11/30/17 23:59 23:59 23:59 23:59 Intake Total 1900 2100 3090 Output Total 1500 1600 1225 Balance 534 939 4502 Last Vital Signs Temp Pulse Resp BP Pulse Ox 98.8 F 124 H 20 143/64 95 11/30/17 06:21 11/30/17 06:21 11/30/17 06:21 11/30/17 06:21 11/29/17 09:00 Active Medications Acetaminophen (Tylenol Suppository -) 650 mg [place] Q4H PRN PRN Reason: FEVER Last Admin: 11/23/17 15:50 Dose: 650 mg Amino Acids (Prosource No Carb Liquid Pkt) 30 ml PO BIDWM [facility] Last Admin: 11/30/17 09:23 Dose: Not Given Bacitracin (Bacitracin -) 1 applic TP BID [facility] Last Admin: 11/29/17 22:33 Dose: 1 applic Vancomycin HCl 1,000 mg/ (Dextrose) 250 mls @ 166.667 mls/hr IVPB DAILY@1700 [facility] Last Admin: 11/29/17 17:37 Dose: 166.667 mls/hr Potassium Chloride/Dextrose/Sod Cl (D5-1/2ns+20 Meq Kcl -) 20 meq in 1,000 mls @ 75 mls/hr IV ASDIR [facility] Last Admin: 11/30/17 09:21 Dose: 75 mls/hr Lorazepam (Ativan Injection -) 1 mg IVPUSH Q8H PRN PRN Reason: ANXIETY Multivitamins/Minerals/Vitamin C (Tab-A-Vit -) 1 tab PO DAILY [facility] Last Admin: 11/30/17 09:24 Dose: Not Given Ranitidine HCl (Zantac -) 150 mg PO BID [facility] Last Admin: 11/30/17 09:24 Dose: Not Given Constitutional: Yes: NAD, Cachectic Eyes: Yes: WNL HENT: Yes: WNL Neck: Yes: WNL Cardiovascular: Yes: Regular Rate and Rhythm, S1, S2 Respiratory: Yes: Few scattered basilar Rhonchi Gastrointestinal: Yes: Normal Bowel Sounds, Soft Extremities: Yes: WNL Edema: No Labs: Problem List - Problems (1) Anemia Code(s): D64.9 - ANEMIA, UNSPECIFIED Qualifiers: Anemia type: other cause Other causes of anemia: other cause, not classified Qualified Code(s): D64.89 - Other specified anemias (2) Dehydration Code(s): E86.0 - DEHYDRATION (3) Elevated lactic acid level Code(s): R79.89 - OTHER SPECIFIED ABNORMAL FINDINGS OF BLOOD CHEMISTRY (4) Lung mass Code(s): R91.8 - OTHER NONSPECIFIC ABNORMAL FINDING OF LUNG FIELD (5) Schizophrenia Code(s): F20.9 - SCHIZOPHRENIA, UNSPECIFIED Assessment/Plan LLL Lung Mass likely malignant Failure to Thrive Schizophrenia Depression Fever UTI + ECOLI HYPERNATREMIA Lung mass suspicious for malignancy but patient with very poor functional status and appears very malnourished, likely would not be a candidate for treatment even if he was diagnosed with a malignancy Would defer invasive diagnostic procedures at this time VTE prophylaxis ABX per ID BD TX IVF DNR/DNI Dr Aguirre
--- NOTE | 2017-11-30 11:12 | DS ---
Physical Examination Vital Signs: Vital Signs Temperature 98.8 F 11/30/17 06:21 Pulse Rate 124 H 11/30/17 06:21 Respiratory Rate 20 11/30/17 06:21 Blood Pressure 143/64 11/30/17 06:21 O2 Sat by Pulse Oximetry (%) 95 11/29/17 09:00 Constitutional: Yes: No Distress, Calm Cardiovascular: Yes: Regular Rate and Rhythm Respiratory: Yes: Diminished, Rhonchi Labs: CBC, BMP 11/26/17 06:48 11/29/17 06:20 Discharge Summary Reason For Visit: UREMIA Current Active Problems Anemia (Acute) Dehydration (Acute) Elevated lactic acid level (Acute) Lung mass (Acute) MRSA bacteremia (Acute) Malnutrition (Acute) Pneumonia (Acute) Schizophrenia (Acute) Sepsis (Acute) Uremia (Acute) Hospital Course: Admitting history - Primary Care Physician PCP: Stacy Fuentes - Admission Chief Complaint: shortness of breath and lethargic History of Present Illness: patient sent to the emergency room by me from [facility]. Patient was seen earlier Over there. Patient's saturation was 81% on 3 L. Recent chest x-ray showed--left lower mass./ possible pneumonia I reviewed the chart. Patient recently admitted to [facility]--- [facility]. Apparently he had chest x-ray done in August--- showed similar mass. No discharge summary came. Apparently in the chart--mentioned to CT chest--- but no CT chest one/ or report available. Also mentioned patient has guardian but no family. also mentioned--- conservative treatment as per pulmonary and hematology--- but no consults seen Patient is not DNR. I advised since patient is dyspneic-sent to emergency room for further evaluation and management. In the emergency room---the chest x-ray/ ct chest confirmed a mass . patient is very cachectic/week. Poor historian HOSPITALIZATION COURSE Seen by Pulmonary , Oncology and ID Not a good candidate for interventions, chemo , RT Placed on antibiotics for post obstructive pneumonia and UTI found to have MRSA bacteremia had a fall yesterday -- CT head x 2 -- negative blood cultures repeat negative improving on iv antibiotics and iv fluids comfort care -- may give antibiotics Echo - no vegetations Legal guardian consented to picc line placement for vanco x 3 weeks check vanco levels twice a week Pt is DNR/DNI Do not rehospitalize and convert to hospice if pt deteriorates Condition: Improved - Instructions Referrals: Stacy Fuentes MD [Primary Care Provider] - Disposition: [facility] - Home Medications Comprehensive Discharge Medication List: Ambulatory Orders Acetaminophen [Tylenol] 650 mg PO PRN 11/03/17 Docusate Sodium 100 mg PO PRN 11/03/17 Multivitamins [Multivit ([facility] Formulary)] 1 tab PO DAILY 11/03/17 Ranitidine HCl [Zantac] 150 mg PO BID 11/03/17 Bacitracin - [Bacitracin Topical Ointment -] 1 applic TP BID 11/20/17 Mirtazapine [Remeron -] 7.5 mg PO HS 11/20/17 Amino Acids/Protein Hydrolys [Prosource No Carb Liquid Pkt] 30 ml PO BIDWM #60 packet 11/30/17 Vancomycin 1,000 mg IVPB DAILY@1700 #21 vial 11/30/17
[2017-11-30] MEDS ORDERED: LORazepam 2 MG/ML SDV VIAL IVPUSH PRN (11:42)
[2017-11-30] MEDS ORDERED: PT OWN MED DRAWER 7, Y5N ONE (17:50)
[2017-11-30] MEDS: VANCOMYCIN 1,000 MG in DEXTROSE 5%-WATER - 250 ML IVPB SCH (18:49)
[2017-11-30] MEDS: PICC LINE 8 ML FLUSH PROTOCOL IVPUSH PRN (18:49)
[2017-11-30] MEDS: BACITRACIN 15 GM TUBE TOPICAL OINTMENT TP SCH ×2 (18:50→22:00)
[2017-12-01] MEDS: AMINO ACIDS/PROTEIN HYDROLYS 30 ML LIQUID.PKT PO SCH ×2 (08:33→17:46)
[2017-12-01] MEDS: MULTIVITAMINS (DAILY MVI) TABLET (FP) PO SCH (10:34)
[2017-12-01] MEDS: RANITIDINE HCL 150 MG TABLET (FP) PO SCH (10:35)
--- NOTE | 2017-12-01 11:53 | PN ---
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 (short form) - Note 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: PULMONARY OPENS EYES/NON VERBAL AFEBRILE/WASTED DIMINISHED BREATH SOUNDS S1S2 TACHY BS+ NO EDEMA LABS/NOTES/MEDS REVIEWED Lung Mass likely malignant Failure to Thrive Schizophrenia Depression - lung mass likely malignant but pt with poor functional status and appears very malnourished, likely would not be a candidate for treatment even if he was diagnosed with a malignancy - would defer invasive diagnostic procedures at this time - oncology evaluation for further input - DVT prophylaxis Khoi MARTINEZ MD
[2017-12-01] MEDS: COLLAGENASE CLOSTRIDIUM HIST. 30 GRAMS TUBE TP SCH ×2 (12:33→12:35)
[2017-12-01] MEDS: PICC LINE 8 ML FLUSH PROTOCOL IVPUSH PRN (12:35)
[2017-12-01] MEDS: D5-1/2NS+20 MEQ KCL - 20 MEQ/1,000 ML INFUS.BAG IV SCH (12:35)
[2017-12-01] MEDS: BACITRACIN 15 GM TUBE TOPICAL OINTMENT TP SCH (12:35)
[2017-12-01] MEDS ORDERED: PT OWN MED DRAWER 7, Y5N ONE (13:51)
[2017-12-01 15:34] VITALS: TEMP 98.1
[2017-12-01 17:43] VITALS: BP 110/70; PULSE 99
[2017-12-01] MEDS: VANCOMYCIN 1,000 MG in DEXTROSE 5%-WATER - 250 ML IVPB SCH (17:47)
== END 2017-12-01 17:44 | DRG 871 ==
LOC: JER 13:46 → JERBED 16:32 → J5S 18:27 → J8W 11-25 18:09
PROVIDERS: ADMIT Internal Medicine; ATTEND Internal Medicine
PROC: 5A09357 Assistance with Respiratory Ventilation, Less than 24 Consecutive Hours, Continuous Positive Airway Pressure (ICD-10-PCS; principal; 2017-11-20)
PROC: 05HB33Z Insertion of Infusion Device into Right Basilic Vein, Percutaneous Approach (ICD-10-PCS; 2017-11-30)
PROC: B51MZZA Fluoroscopy of Right Upper Extremity Veins, Guidance (ICD-10-PCS; 2017-11-30)
DX: A41.9 Sepsis, unspecified organism (principal); E43 Unspecified severe protein-calorie malnutrition; J16.8 Pneumonia due to other specified infectious organisms; R64 Cachexia; Z68.1 Body mass index [BMI] 19.9 or less, adult; N39.0 Urinary tract infection, site not specified; E87.2 Acidosis; E87.3 Alkalosis; E87.0 Hyperosmolality and hypernatremia; F32.9 Major depressive disorder, single episode, unspecified; K21.9 Gastro-esophageal reflux disease without esophagitis; E86.0 Dehydration; N19 Unspecified kidney failure; R91.8 Other nonspecific abnormal finding of lung field; B96.29 Other Escherichia coli [E. coli] as the cause of diseases classified elsewhere; L89.152 Pressure ulcer of sacral region, stage 2; R09.02 Hypoxemia; D64.9 Anemia, unspecified; Z91.81 History of falling; I25.10 Atherosclerotic heart disease of native coronary artery without angina pectoris; R62.7 Adult failure to thrive; F20.3 Undifferentiated schizophrenia; B96.5 Pseudomonas (aeruginosa) (mallei) (pseudomallei) as the cause of diseases classified elsewhere; B95.62 Methicillin resistant Staphylococcus aureus infection as the cause of diseases classified elsewhere; S01.81XA Laceration without foreign body of other part of head, initial encounter; W01.0XXA Fall on same level from slipping, tripping and stumbling without subsequent striking against object, initial encounter; Y93.89 Activity, other specified; Y92.128 Other place in nursing home as the place of occurrence of the external cause; Y99.8 Other external cause status
CPT/HCPCS: 36415; 36569; 36600; 70450-TC; 71045-TC-FY; 71250-TC; 77001-TC-FY; 80048; 80053; 81003; 81015; 82272; 82375; 82550; 82803; 83050; 83605; 84484; 85025; 85027; 85610; 85730; 86850; 86900; 86901; 87040; 87086; 87186; 90670; 90688; 93005; 93010; 93306-TC; 94640; 94660; 97161-GP; 99285-25; C1751; G0008; G0009; G0480; J1644; J7030